=== PATIENT | female | born 1940 | race Caucasian/White ===

== ENCOUNTER 2018-10-26 16:38 | Emergency (ER) | payer MEDICARE, OTHER ==
[~2018-10-26] VITALS: Ht 160 cm; Wt 78.0 kg
--- NOTE | 2018-10-26 16:50 | NUR ---
PT AMBULATORY TO ER BED 13 C/ EPIGASTRIC PAIN W/ NAUSEA X 3 DAYS NOW. PT DENIES DIARRHEA, GOWNED AND PLACED ON MONITOR. VSS. AWAITING MD HUANG.
--- NOTE | 2018-10-26 17:13 | NUR ---
DR MANN AT BEDSIDE FOR EVAL.
[2018-10-26] MEDS ORDERED: ONDANSETRON HCL/PF 4 MG/2 ML VIAL ONE (17:16)
--- NOTE | 2018-10-26 17:23 | NUR ---
IV LINE STARTED BLOOD DRAW AND SENT TO LAB.
[2018-10-26 17:27] LABS: BASOPHILS % (AUTO) 0.3 % (0.0-2.0); EOSINOPHILS % (AUTO) 0.3 % (0.0-6.0); HEMATOCRIT 39 % (33-45); HEMOGLOBIN 13.5 g/dL (11.5-14.8); LYMPHOCYTES # (AUTO) 1.5 /CMM (0.8-4.8); LYMPHOCYTES % (AUTO) 18.5 % (20.0-44.0); MEAN CORPUSCULAR HGB CONC 35 g/dl (31.0-36.0); MEAN CORPUSCULAR VOLUME 87 fL (82-100); MONOCYTES # (AUTO) 0.7 /CMM (0.1-1.30); MONOCYTES % (AUTO) 9.3 % (2.0-12.0); NEUTROPHILS # (AUTO) 5.6 /CMM (1.8-8.9); NEUTROPHILS % (AUTO) 71.6 % (43.0-81.0); PLATELET COUNT (AUTO) 249 /CMM (150-450); RED BLOOD CELL COUNT(AUTO) 4.46 MIL/uL (4.0-5.2); WHITE BLOOD COUNT (AUTO) 7.9 K/uL (4.3-11.0)
[2018-10-26] MEDS ORDERED: ONDANSETRON HCL/PF 4 MG/2 ML VIAL IVP ONE (17:30)
[2018-10-26] MEDS ORDERED: IV NS 0.9% 1,000 ML BAG IV ONE (17:30)
[2018-10-26 17:35] LABS: CALCIUM, SERUM 8.7 mg/dL (8.5-10.1); CARBON DIOXIDE 28 mmol/L (21-32); CHLORIDE 89 mmol/L (98-107); CREATININE 0.7 mg/dL (0.6-1.3); GLUCOSE 100 mg/dL (74-106); POTASSIUM 3.4 mmol/L (3.5-5.1); SODIUM SERUM 125 mmol/L (136-145); UREA NITROGEN, BLOOD 15 mg/dL (7-18)
[2018-10-26 17:41] LABS: ALANINE AMINOTRANSFERASE 27 U/L (12-78); ALBUMIN 3.6 g/dL (3.4-5.0); ALKALINE PHOSPHATASE 65 U/L (46-116); ASPARTATE AMINOTRANSFERASE 25 U/L (15-37); BILIRUBIN,DIRECT 0.1 mg/dL (0.0-0.2); BILIRUBIN,TOTAL 0.5 mg/dL (0.2-1.0); LIPASE 65 U/L (73-393); TOTAL PROTEIN, SERUM 6.7 g/dL (6.4-8.2)
[2018-10-26 19:05] LABS: APPEARANCE,URINE Clear (CLEAR); BILIRUBIN,URINE Negative (NEGATIVE); BLOOD, URINE Negative Ery/uL (NEGATIVE); COLOR,URINE Yellow (YELLOW); KETONES,URINE Negative (NEGATIVE); LEUKOCYTE ESTERASE ,URINE Negative (NEGATIVE); NITRITE, URINE Negative (NEGATIVE); PROTEIN,URINE Negative (NEGATIVE); UGLUCOSE Negative (NEGATIVE); UROBILINOGEN,URINE 0.2 EU/dL (0.2)
--- NOTE | 2018-10-26 19:13 | NUR ---
REPORT GIVEN TO ANNIE GATES FOR SALENA.
--- NOTE | 2018-10-26 19:29 | NUR ---
RECEIVED REPORT FROM NETTIE WINTER FOR Pt's SALENA. WILL CONTINUE TO MONITOR's CONDITION AND SAFETY. Pt IS CLEARED FOR DISCHARGE.
--- NOTE | 2018-10-26 19:57 | NUR ---
Patient discharged to home in stable condition. Written and verbal after care instructions given. Patient verbalizes understanding of instruction. Patient left facility on foot with steady gait. No s/s of acute distress or sob noted. vs stable.
[2018-10-26 19:58] VITALS: BP 125/87
== END 2018-10-26 20:02 | disposition home or self-care (01) ==
LOC: ER 16:50
DX: R11.0 Nausea (principal); R10.13 Epigastric pain; R53.1 Weakness; I10 Essential (primary) hypertension; I25.2 Old myocardial infarction; J45.909 Unspecified asthma, uncomplicated; Z90.89 Acquired absence of other organs; Z87.19 Personal history of other diseases of the digestive system
CPT/HCPCS: 36415; 71045-TC; 80048-TC; 80076-TC; 81000-TC; 83690-TC; 85025-TC; A4606; J2405; J7030; Z7610

== ENCOUNTER 2018-12-03 19:55 | Emergency (ER) | payer MEDICARE, OTHER ==
[~2018-12-03] VITALS: Ht 162.6 cm; Wt 77.1 kg
[2018-12-03 20:55] VITALS: BP 121/78
--- NOTE | 2018-12-03 21:07 | NUR ---
PT AAOX4. NO S/S OF ACUTE DISTRESS NOTED. RR EVEN AND UNLABORED. PT SITTING ON SIDE OF BED AND WALKING AROUND IN ER BED 4.
--- NOTE | 2018-12-03 21:10 | NUR ---
BEDSIDE SPEAKING TO PT.
[2018-12-03] MEDS ORDERED: predniSONE 20 MG TABLET ONE (21:26)
[2018-12-03] MEDS ORDERED: predniSONE 20 MG TABLET PO ONE (21:30)
[2018-12-03] MEDS ORDERED: ALBUTEROL FS 2.5 MG/3 ML VIAL.NEB NEB ONE (21:30)
--- NOTE | 2018-12-03 21:40 | NUR ---
RT CALLED FOR BREATHING TREATMENT
[2018-12-03] MEDS ORDERED: ALBUTEROL FS 2.5 MG/3 ML VIAL.NEB ONE (21:49)
--- NOTE | 2018-12-03 21:58 | NUR ---
RT BEDSIDE FOR BREATHING TREATMENT
--- NOTE | 2018-12-03 23:22 | NUR ---
Patient discharged to home in stable condition. Written and verbal after care instructions given. Patient verbalizes understanding of instruction.
== END 2018-12-03 23:24 | disposition home or self-care (01) ==
LOC: ER 19:57
DX: J42 Unspecified chronic bronchitis (principal); J43.9 Emphysema, unspecified; I10 Essential (primary) hypertension; I25.2 Old myocardial infarction; J45.909 Unspecified asthma, uncomplicated; M54.9 Dorsalgia, unspecified; Z90.89 Acquired absence of other organs; Z95.5 Presence of coronary angioplasty implant and graft
CPT/HCPCS: 71045-TC

== ENCOUNTER 2024-06-11 02:11 | Inpatient (IN) | payer MEDICARE, OTHER ==
[2024-06-11] VITALS (22 sets, daily range): BP systolic 127–166; BP diastolic 66–116; TEMP 98–98.8; O2SAT 92–100
[~2024-06-11] VITALS: Ht 162.6 cm; Wt 76.2 kg
[2024-06-11] MEDS ORDERED: methylPREDNISolone SOD SUCC 125 MG/2ML VIAL ONE (02:19)
[2024-06-11] MEDS ORDERED: Magnesium 1GM/D5W 100ML PREMIX 100 ML IV ONE ×2 (02:19→02:23)
[2024-06-11] MEDS: methylPREDNISolone SOD SUCC 125 MG/2ML VIAL IV ONE (02:24)
[2024-06-11] MEDS: ALBUTEROL FS 2.5 MG/3 ML VIAL.NEB CONTNEB ONE (02:26)
[2024-06-11] MEDS: IPRATROPIUM NEB FS 0.5 MG/2.5 ML AMPUL.NEB NEB ONE (02:26)
[2024-06-11] MEDS ORDERED: IPRATROPIUM NEB FS 0.5 MG/2.5 ML AMPUL.NEB ONE (02:27)
[2024-06-11] MEDS ORDERED: ALBUTEROL FS 2.5 MG/3 ML VIAL.NEB ONE (02:27)
[2024-06-11 02:35] LABS: BASOPHILS % (AUTO) 0.3 % (0.0-2.0); EOSINOPHILS # (AUTO) 0.3 K/uL (0.0-0.7); EOSINOPHILS % (AUTO) 2.8 % (0.0-6.0); HEMATOCRIT 43 % (33-45); HEMOGLOBIN 13.6 g/dL (11.5-14.8); LYMPHOCYTES # (AUTO) 5.5 K/uL (0.8-4.8); LYMPHOCYTES % (AUTO) 44.2 % (20.0-44.0); MEAN CORPUSCULAR HEMOGLOBIN 28 PG (26.0-33.0); MEAN CORPUSCULAR HGB CONC 32 g/dl (31.0-36.0); MEAN CORPUSCULAR VOLUME 88 fL (82-100); MONOCYTES % (AUTO) 7.9 % (2.0-12.0); NEUTROPHILS # (AUTO) 5.6 K/uL (1.8-8.9); NEUTROPHILS % (AUTO) 44.8 % (43.0-81.0); PLATELET COUNT (AUTO) 270 K/uL (150-450); RED BLOOD CELL COUNT(AUTO) 4.85 MIL/uL (4.0-5.2); RED CELL DISTRIBUTION WIDTH 14.6 % (11.5-15.0); WHITE BLOOD COUNT (AUTO) 12.5 K/uL (4.3-11.0)
[2024-06-11] MEDS: Magnesium 1GM/D5W 100ML PREMIX 200 ML IV ONE (02:37)
[2024-06-11 02:46] LABS: CALCIUM, SERUM 8.8 mg/dL (8.5-10.1); CARBON DIOXIDE 26 mmol/L (21-32); CHLORIDE 108 mmol/L (98-107); CREATININE 0.8 mg/dL (0.6-1.3); GLUCOSE 175 mg/dL (74-106); POTASSIUM 4.6 mmol/L (3.5-5.1); SODIUM SERUM 144 mmol/L (136-145); UREA NITROGEN, BLOOD 26 mg/dL (7-18)
[2024-06-11 03:02] LABS: ALANINE AMINOTRANSFERASE 41 U/L (12-78); ALBUMIN 3.5 g/dL (3.4-5.0); ALKALINE PHOSPHATASE 89 U/L (46-116); ASPARTATE AMINOTRANSFERASE 47 U/L (15-37); BILIRUBIN,DIRECT 0.1 mg/dL (0.0-0.2); BILIRUBIN,TOTAL 0.3 mg/dL (0.2-1.0); NT-PRO BNP 2232 pg/mL (0-125); TOTAL PROTEIN, SERUM 7.1 g/dL (6.4-8.2)
[2024-06-11] MEDS ORDERED: LORAZEPAM INJ 2 MG/ML VIAL ONE (03:03)
[2024-06-11] MEDS: LORAZEPAM INJ 2 MG/ML VIAL IV ONE (03:15)
[2024-06-11] MEDS ORDERED: ALBUTEROL FS 2.5 MG/0.5 ML VIAL.NEB NEB PRN (04:30)
[2024-06-11] MEDS ORDERED: MORPHINE SULFATE INJ 2 MG/ML DISP.SYRIN IV PRN (04:30)
[2024-06-11] MEDS ORDERED: ONDANSETRON HCL/PF 4 MG/2 ML VIAL IVP PRN (04:30)
[2024-06-11 04:53] LABS: ABG BASE EXCESS -3.6 mmol/L (-2.0-2.0); ABG PCO2 46.6 mmHg (35.0-45.0); ABG PH 7.309 (7.350-7.450); ABG PO2 126.9 mmHg (75.0-100.0); ABG TOTAL HEMOGLOBIN 12.4 G/dL (12.0-16.0); COHb 1.2 % (0.5-1.5); O2Hb 96.8 % (94.0-97.0); SITE, ABG Left Radial; VENT MODE, BG ST 12/5 RR16 30%
[2024-06-11] MEDS ORDERED: IPRATROPIUM/ALBUTEROL INHALER IH SCH (06:00)
[2024-06-11] MEDS: ALBUTEROL FS 2.5 MG/0.5 ML VIAL.NEB NEB SCH (08:45)
[2024-06-11] MEDS: IPRATROPIUM NEB FS 0.5 MG/2.5 ML AMPUL.NEB IH SCH (08:45)
[2024-06-11] MEDS: HEPARIN SODIUM, PORCINE 5000 UNITS/1 ML VIAL SQ SCH (10:26)
[2024-06-11] MEDS ORDERED: FURO40TA5 PO (11:30)
[2024-06-11] MEDS ORDERED: ISOS60TA72 PO (11:30)
[2024-06-11] MEDS ORDERED: CLON0.1T PO (11:30)
[2024-06-11] MEDS ORDERED: METO25TA4 PO (11:30)
[2024-06-11] MEDS ORDERED: ALBU90AE IH (11:30)
[2024-06-11] MEDS ORDERED: LOSA1TAB36 PO (11:30)
[2024-06-11] MEDS ORDERED: ASPI-1420 PO (11:30)
[2024-06-11] MEDS ORDERED: ROSU20TA32 PO (11:30)
[2024-06-11] MEDS ORDERED: CLOP75TA15 PO (11:30)
[2024-06-11] MEDS: LEVOFLOXACIN (250MG) 250 MG TABLET PO SCH (11:49)
[2024-06-11] MEDS ORDERED: IOHEXOL-350 100 ML VIAL IV ONE (13:02)
[2024-06-11] MEDS ORDERED: IV NS 0.9% 250 ML IV ONE (13:03)
[2024-06-11] MEDS: methylPREDNISolone SOD SUCC 40 MG/ML VIAL IV SCH (13:53)
[2024-06-11] MEDS: MENTHOL/CETYLPYRD (CEPACOL) 1 LOZ LOZENGE PO PRN (16:29)
[2024-06-11] MEDS: ENOXAPARIN SODIUM 80 MG/0.8 ML DISP.SYRIN SQ SCH (20:45)
[2024-06-12] VITALS (21 sets, daily range): BP systolic 54–159; BP diastolic 12–104; TEMP 98–98.6; O2SAT 89–99
[2024-06-12 04:03] LABS: HEMATOCRIT 36 % (33-45); HEMOGLOBIN 11.9 g/dL (11.5-14.8); LYMPHOCYTES # (AUTO) 0.5 K/uL (0.8-4.8); LYMPHOCYTES % (AUTO) 4.4 % (20.0-44.0); MEAN CORPUSCULAR HEMOGLOBIN 29 PG (26.0-33.0); MEAN CORPUSCULAR HGB CONC 33 g/dl (31.0-36.0); MEAN CORPUSCULAR VOLUME 87 fL (82-100); MONOCYTES # (AUTO) 0.3 K/uL (0.1-1.30); MONOCYTES % (AUTO) 2.3 % (2.0-12.0); NEUTROPHILS # (AUTO) 10.4 K/uL (1.8-8.9); NEUTROPHILS % (AUTO) 93.3 % (43.0-81.0); PLATELET COUNT (AUTO) 207 K/uL (150-450); RED BLOOD CELL COUNT(AUTO) 4.15 MIL/uL (4.0-5.2); RED CELL DISTRIBUTION WIDTH 14.1 % (11.5-15.0); WHITE BLOOD COUNT (AUTO) 11.1 K/uL (4.3-11.0)
[2024-06-12 04:45] LABS: ALANINE AMINOTRANSFERASE 43 U/L (12-78); ALBUMIN 3.1 g/dL (3.4-5.0); ALKALINE PHOSPHATASE 77 U/L (46-116); ASPARTATE AMINOTRANSFERASE 21 U/L (15-37); BILIRUBIN,TOTAL 0.2 mg/dL (0.2-1.0); CALCIUM, SERUM 8.5 mg/dL (8.5-10.1); CARBON DIOXIDE 28 mmol/L (21-32); CHLORIDE 104 mmol/L (98-107); CREATININE 1.1 mg/dL (0.6-1.3); GLUCOSE 183 mg/dL (74-106); MAGNESIUM 2.4 mg/dL (1.8-2.4); PHOSPHORUS 2.9 mg/dL (2.5-4.9); POTASSIUM 3.9 mmol/L (3.5-5.1); SODIUM SERUM 141 mmol/L (136-145); TOTAL PROTEIN, SERUM 6.5 g/dL (6.4-8.2); UREA NITROGEN, BLOOD 31 mg/dL (7-18)
[2024-06-12] MEDS: APIXABAN 5 MG TABLET PO SCH (16:58)
[2024-06-12] MEDS: LORAZEPAM 0.5 MG TABLET PO PRN (19:40)
[2024-06-12] MEDS: ACETAMINOPHEN 325 MG TABLET PO PRN (20:10)
[2024-06-12] MEDS: ZOLPIDEM TARTRATE 5 MG TABLET PO PRN (21:47)
[2024-06-13] VITALS (13 sets, daily range): BP systolic 110–174; BP diastolic 88–144; TEMP 97.3–98; O2SAT 90–98
[2024-06-13] MEDS: OLANZAPINE 10 MG VIAL IM PRN (01:29)
[2024-06-13 06:49] LABS: BASOPHILS % (AUTO) 0.1 % (0.0-2.0); HEMATOCRIT 37 % (33-45); HEMOGLOBIN 12.5 g/dL (11.5-14.8); LYMPHOCYTES # (AUTO) 0.6 K/uL (0.8-4.8); LYMPHOCYTES % (AUTO) 5.6 % (20.0-44.0); MEAN CORPUSCULAR HEMOGLOBIN 29 PG (26.0-33.0); MEAN CORPUSCULAR HGB CONC 33 g/dl (31.0-36.0); MEAN CORPUSCULAR VOLUME 87 fL (82-100); MONOCYTES # (AUTO) 0.2 K/uL (0.1-1.30); MONOCYTES % (AUTO) 1.7 % (2.0-12.0); NEUTROPHILS # (AUTO) 9.8 K/uL (1.8-8.9); NEUTROPHILS % (AUTO) 92.6 % (43.0-81.0); PLATELET COUNT (AUTO) 209 K/uL (150-450); RED BLOOD CELL COUNT(AUTO) 4.29 MIL/uL (4.0-5.2); RED CELL DISTRIBUTION WIDTH 14.4 % (11.5-15.0); WHITE BLOOD COUNT (AUTO) 10.5 K/uL (4.3-11.0)
[2024-06-13 06:55] LABS: CALCIUM, SERUM 8.8 mg/dL (8.5-10.1); CARBON DIOXIDE 32 mmol/L (21-32); CHLORIDE 110 mmol/L (98-107); GLUCOSE 147 mg/dL (74-106); MAGNESIUM 2.1 mg/dL (1.8-2.4); PHOSPHORUS 3.7 mg/dL (2.5-4.9); POTASSIUM 4.6 mmol/L (3.5-5.1); SODIUM SERUM 147 mmol/L (136-145); UREA NITROGEN, BLOOD 35 mg/dL (7-18)
[2024-06-13] MEDS: ATORVASTATIN 40 MG TABLET PO SCH (08:52)
[2024-06-13] MEDS: CLOPIDOGREL BISULFATE 75 MG TABLET PO SCH (08:52)
[2024-06-13] MEDS: ASPIRIN EC 81 MG TABLET.DR PO SCH (08:59)
[2024-06-13] MEDS: NA PHOS,M-B/NA PHOS,DI-BA 1 EA ENEMA RC ONE (16:29)
[2024-06-13] MEDS: hydrALAZINE HCL IV 20 MG VIAL IV PRN (20:29)
[2024-06-14 06:38] VITALS: O2SAT 97
[2024-06-14 06:48] VITALS: O2SAT 98
[2024-06-14 08:00] VITALS: BP 150/111; TEMP 97.5; O2SAT 94
== END 2024-06-14 10:30 | disposition home or self-care (01) | DRG 190 ==
LOC: ER 02:13 → ICU 04:11 → TELE 06-12 11:42 → MED 06-13 10:12
PROVIDERS: ADMIT Nurse Practitioner Acute Care; ATTEND Nurse Practitioner Family
PROC: 5A09357 Assistance with Respiratory Ventilation, Less than 24 Consecutive Hours, Continuous Positive Airway Pressure (ICD-10-PCS; principal; 2024-06-11)
DX: J44.1 Chronic obstructive pulmonary disease with (acute) exacerbation (principal); J96.01 Acute respiratory failure with hypoxia; J96.02 Acute respiratory failure with hypercapnia; J45.901 Unspecified asthma with (acute) exacerbation; I82.401 Acute embolism and thrombosis of unspecified deep veins of right lower extremity; N17.9 Acute kidney failure, unspecified; I82.412 Acute embolism and thrombosis of left femoral vein; I25.10 Atherosclerotic heart disease of native coronary artery without angina pectoris; I10 Essential (primary) hypertension; Z20.822 Contact with and (suspected) exposure to COVID-19; I25.2 Old myocardial infarction; Z87.19 Personal history of other diseases of the digestive system; G89.29 Other chronic pain; Z95.5 Presence of coronary angioplasty implant and graft; Z90.49 Acquired absence of other specified parts of digestive tract; Z79.899 Other long term (current) drug therapy; Z79.82 Long term (current) use of aspirin; Z79.51 Long term (current) use of inhaled steroids; Z79.01 Long term (current) use of anticoagulants; T50.8X5A Adverse effect of diagnostic agents, initial encounter; Y92.9 Unspecified place or not applicable
CPT/HCPCS: 36415; 36600; 71045-TC; 80048-TC; 80053-TC; 80076-TC; 82803-TC; 83735-TC; 83880; 84100-TC; 84484-TC; 85025-TC; 87081-TC; 93970-TC; 94760-TC; 94762-TC; 94799-TC; G0378; J0360; J1644; J1650; J2060; J2919; J3475; J3490; J7050; Q9967

== ENCOUNTER 2024-07-01 17:13 | Emergency (ER) | payer MEDICARE ==
[~2024-07-01] VITALS: Ht 165.1 cm; Wt 74.8 kg
[~2024-07-01 17:13] MED LIST: ALBU90AE IH; ASPI-1420 PO; CLON0.1T PO; FURO40TA5 PO; ISOS60TA72 PO; METO25TA4 PO; ROSU20TA32 PO
[2024-07-01 19:06] LABS: BASOPHILS # (AUTO) 0.1 K/uL (0.0-0.2); BASOPHILS % (AUTO) 0.7 % (0.0-2.0); EOSINOPHILS # (AUTO) 0.1 K/uL (0.0-0.7); EOSINOPHILS % (AUTO) 1.3 % (0.0-6.0); HEMATOCRIT 39 % (33-45); HEMOGLOBIN 12.8 g/dL (11.5-14.8); LYMPHOCYTES # (AUTO) 1.2 K/uL (0.8-4.8); LYMPHOCYTES % (AUTO) 15.9 % (20.0-44.0); MEAN CORPUSCULAR HEMOGLOBIN 28 PG (26.0-33.0); MEAN CORPUSCULAR HGB CONC 33 g/dl (31.0-36.0); MEAN CORPUSCULAR VOLUME 87 fL (82-100); MONOCYTES # (AUTO) 0.5 K/uL (0.1-1.30); MONOCYTES % (AUTO) 7.1 % (2.0-12.0); NEUTROPHILS # (AUTO) 5.4 K/uL (1.8-8.9); PLATELET COUNT (AUTO) 213 K/uL (150-450); RED BLOOD CELL COUNT(AUTO) 4.49 MIL/uL (4.0-5.2); RED CELL DISTRIBUTION WIDTH 14.7 % (11.5-15.0); WHITE BLOOD COUNT (AUTO) 7.3 K/uL (4.3-11.0)
[2024-07-01 19:21] LABS: CALCIUM, SERUM 8.8 mg/dL (8.5-10.1); CARBON DIOXIDE 31 mmol/L (21-32); CHLORIDE 106 mmol/L (98-107); CREATININE 0.6 mg/dL (0.6-1.3); GLUCOSE 89 mg/dL (74-106); POTASSIUM 4.6 mmol/L (3.5-5.1); SODIUM SERUM 142 mmol/L (136-145); UREA NITROGEN, BLOOD 21 mg/dL (7-18)
[2024-07-01] MEDS: CLONIDINE HCL 0.1 MG TABLET PO ONE (19:42)
[2024-07-01] MEDS: ISOSORBIDE MONONITRATE 20 MG TABLET PO SCH (20:28)
[2024-07-02] MEDS: ALBUTEROL FS 2.5 MG/3 ML VIAL.NEB NEB ONE ×2 (01:00→06:09)
[2024-07-02 01:02] VITALS: O2SAT 94
[2024-07-02] MEDS ORDERED: ALBUTEROL FS 2.5 MG/3 ML VIAL.NEB ONE ×2 (01:03→06:13)
[2024-07-02 01:17] VITALS: O2SAT 99
[2024-07-02 06:16] VITALS: O2SAT 97
[2024-07-02 06:32] VITALS: O2SAT 99
[2024-07-02 10:41] VITALS: BP 116/63; TEMP 98.1; O2SAT 95
[2024-09-08] MEDS ORDERED: ATOR40TA PO (09:05)
[2024-09-08] MEDS ORDERED: ALBU18HF2 INH (09:05)
[2024-09-08] MEDS ORDERED: CLIN300C12 PO (09:05)
[2024-09-08] MEDS ORDERED: FURO-144 PO (09:05)
[2024-09-08] MEDS ORDERED: ISOS30TA86 PO (09:05)
== END 2024-07-02 10:42 | disposition home or self-care (01) ==
LOC: ER 17:17 → MEDSG1 07-02 09:42 → UNDOADMIN 07-02 09:42 → UNDODISIN 07-02 10:25 → ER 07-02 10:42
DX: J44.1 Chronic obstructive pulmonary disease with (acute) exacerbation (principal); I10 Essential (primary) hypertension; R22.41 Localized swelling, mass and lump, right lower limb; I25.10 Atherosclerotic heart disease of native coronary artery without angina pectoris; I25.2 Old myocardial infarction; K21.9 Gastro-esophageal reflux disease without esophagitis; M79.89 Other specified soft tissue disorders; Z79.899 Other long term (current) drug therapy; Z90.49 Acquired absence of other specified parts of digestive tract; Z79.82 Long term (current) use of aspirin; Z79.51 Long term (current) use of inhaled steroids; Z20.822 Contact with and (suspected) exposure to COVID-19; Z95.5 Presence of coronary angioplasty implant and graft; Z87.39 Personal history of other diseases of the musculoskeletal system and connective tissue; Z87.19 Personal history of other diseases of the digestive system
CPT/HCPCS: 36415; 71045-TC; 80048-TC; 83880; 84484-TC; 85025-TC; 85378-TC; 93971-TC; G0378

== ENCOUNTER 2024-07-09 18:20 | Emergency (ER) | payer MEDICARE ==
[~2024-07-09] VITALS: Ht 165.1 cm; Wt 70.3 kg
[2024-07-09 18:33] VITALS: TEMP 98.6
[2024-07-09] MEDS ORDERED: ONDANSETRON HCL/PF 4 MG/2 ML VIAL ONE (19:57)
[2024-07-09] MEDS: IV NS 0.9% 1,000 ML BAG IV ONE (19:58)
[2024-07-09] MEDS: ONDANSETRON HCL/PF 4 MG/2 ML VIAL IVP ONE (19:58)
[2024-07-09 20:03] LABS: BASOPHILS # (AUTO) 0.1 K/uL (0.0-0.2); BASOPHILS % (AUTO) 0.7 % (0.0-2.0); EOSINOPHILS # (AUTO) 0.2 K/uL (0.0-0.7); HEMATOCRIT 43 % (33-45); HEMOGLOBIN 13.9 g/dL (11.5-14.8); LYMPHOCYTES % (AUTO) 24.1 % (20.0-44.0); MEAN CORPUSCULAR HEMOGLOBIN 28 PG (26.0-33.0); MEAN CORPUSCULAR HGB CONC 32 g/dl (31.0-36.0); MEAN CORPUSCULAR VOLUME 87 fL (82-100); MONOCYTES # (AUTO) 0.8 K/uL (0.1-1.30); NEUTROPHILS # (AUTO) 5.2 K/uL (1.8-8.9); NEUTROPHILS % (AUTO) 63.2 % (43.0-81.0); PLATELET COUNT (AUTO) 283 K/uL (150-450); RED BLOOD CELL COUNT(AUTO) 4.94 MIL/uL (4.0-5.2); RED CELL DISTRIBUTION WIDTH 14.6 % (11.5-15.0); WHITE BLOOD COUNT (AUTO) 8.3 K/uL (4.3-11.0)
[2024-07-09 20:08] VITALS: BP 164/82; O2SAT 96
[2024-07-09 20:17] LABS: CALCIUM, SERUM 9.1 mg/dL (8.5-10.1); CARBON DIOXIDE 35 mmol/L (21-32); CHLORIDE 102 mmol/L (98-107); CREATININE 0.8 mg/dL (0.6-1.3); GLUCOSE 97 mg/dL (74-106); POTASSIUM 4.1 mmol/L (3.5-5.1); SODIUM SERUM 141 mmol/L (136-145); UREA NITROGEN, BLOOD 23 mg/dL (7-18)
[2024-07-09 20:21] LABS: INR 0.99 (0.91-1.10); PARTIAL THROMBOPLASTIN TIME 26.5 SEC (24.3-34.3); PROTHROMBIN TIME 10.5 SECS (9.2-11.1)
[2024-07-09 20:23] LABS: ALANINE AMINOTRANSFERASE 21 U/L (12-78); ALBUMIN 3.7 g/dL (3.4-5.0); ALKALINE PHOSPHATASE 88 U/L (46-116); ASPARTATE AMINOTRANSFERASE 8 U/L (15-37); BILIRUBIN,DIRECT 0.1 mg/dL (0.0-0.2); BILIRUBIN,TOTAL 0.4 mg/dL (0.2-1.0); LIPASE 26 U/L (16-77); TOTAL PROTEIN, SERUM 6.8 g/dL (6.4-8.2)
== END 2024-07-09 20:40 | disposition left against medical advice (07) ==
LOC: ER 18:25
DX: R11.2 Nausea with vomiting, unspecified (principal); I10 Essential (primary) hypertension; Z98.890 Other specified postprocedural states; J45.909 Unspecified asthma, uncomplicated; Z79.82 Long term (current) use of aspirin; Z79.52 Long term (current) use of systemic steroids; Z79.899 Other long term (current) drug therapy; Z60.2 Problems related to living alone
CPT/HCPCS: 99283; 96374; 96361; 85025; 80048; 83690; 80076; 36415; 85730; J2405; J7030

== ENCOUNTER 2024-08-21 14:32 | Emergency (ER) | payer MEDICARE ==
[~2024-08-21] VITALS: Ht 162.6 cm; Wt 72.6 kg
[2024-08-21 15:23] VITALS: TEMP 98.3
[2024-08-21] MEDS: CEPHALEXIN MONOHYDRATE 500 MG CAPSULE PO ONE (16:06)
[2024-08-21] MEDS: SULFAMETH/TRIMETH 800/160 MG 1 UDTAB TABLET PO ONE (16:06)
[2024-08-21] MEDS ORDERED: CEPHALEXIN MONOHYDRATE 500 MG CAPSULE PO ONE (16:09)
[2024-08-21] MEDS ORDERED: SULFAMETH/TRIMETH 800/160 MG 1 UDTAB TABLET ONE (16:10)
[2024-08-21] MEDS ORDERED: CEPH500T PO (16:57)
[2024-08-21] MEDS ORDERED: SULF1TAB48 PO (16:57)
[2024-08-21 17:18] VITALS: BP 154/84; O2SAT 96
== END 2024-08-21 17:19 | disposition home or self-care (01) ==
LOC: ER 14:40
DX: L03.115 Cellulitis of right lower limb (principal); J45.909 Unspecified asthma, uncomplicated; I25.2 Old myocardial infarction; R60.0 Localized edema; Z79.899 Other long term (current) drug therapy; Z79.82 Long term (current) use of aspirin; Z60.2 Problems related to living alone
CPT/HCPCS: 93971-TC

== ENCOUNTER 2024-09-06 18:18 | Inpatient (IN) | payer MEDICARE ==
[~2024-09-06] VITALS: Ht 162.6 cm; Wt 78.6 kg
[~2024-09-06 18:18] MED LIST changes: +CEPH500T PO; +SULF1TAB48 PO
[2024-09-06 19:40] LABS: BASOPHILS % (AUTO) 0.3 % (0.0-2.0); EOSINOPHILS # (AUTO) 0.2 K/uL (0.0-0.7); HEMATOCRIT 42 % (33-45); HEMOGLOBIN 13.5 g/dL (11.5-14.8); LYMPHOCYTES # (AUTO) 1.6 K/uL (0.8-4.8); LYMPHOCYTES % (AUTO) 17.4 % (20.0-44.0); MEAN CORPUSCULAR HEMOGLOBIN 28 PG (26.0-33.0); MEAN CORPUSCULAR HGB CONC 33 g/dl (31.0-36.0); MEAN CORPUSCULAR VOLUME 86 fL (82-100); MONOCYTES # (AUTO) 0.7 K/uL (0.1-1.30); MONOCYTES % (AUTO) 7.6 % (2.0-12.0); NEUTROPHILS # (AUTO) 6.8 K/uL (1.8-8.9); NEUTROPHILS % (AUTO) 72.7 % (43.0-81.0); PLATELET COUNT (AUTO) 231 K/uL (150-450); RED BLOOD CELL COUNT(AUTO) 4.82 MIL/uL (4.0-5.2); RED CELL DISTRIBUTION WIDTH 14.8 % (11.5-15.0); WHITE BLOOD COUNT (AUTO) 9.3 K/uL (4.3-11.0)
[2024-09-06 19:50] LABS: CALCIUM, SERUM 9.4 mg/dL (8.5-10.1); CARBON DIOXIDE 27 mmol/L (21-32); CHLORIDE 106 mmol/L (98-107); GLUCOSE 118 mg/dL (74-106); POTASSIUM 4.4 mmol/L (3.5-5.1); SODIUM SERUM 141 mmol/L (136-145); UREA NITROGEN, BLOOD 32 mg/dL (7-18)
[2024-09-06 20:04] LABS: ALANINE AMINOTRANSFERASE 36 U/L (12-78); ALBUMIN 3.7 g/dL (3.4-5.0); ALKALINE PHOSPHATASE 94 U/L (46-116); ASPARTATE AMINOTRANSFERASE 35 U/L (15-37); BILIRUBIN,TOTAL 0.4 mg/dL (0.2-1.0); NT-PRO BNP 2377 pg/mL (0-125); TOTAL PROTEIN, SERUM 6.9 g/dL (6.4-8.2)
[2024-09-06] MEDS ORDERED: methylPREDNISolone SOD SUCC 125 MG/2ML VIAL ONE (20:56)
[2024-09-06] MEDS: methylPREDNISolone SOD SUCC 125 MG/2ML VIAL IV ONE (21:04)
[2024-09-06 21:05] LABS: ABG BASE EXCESS 0.4 mmol/L (-2.0-3.0); ABG OXYGEN SATURATION 92.7 % (94.0-98.0); ABG PCO2 40.6 mmHg (32.0-45.0); ABG PH 7.408 (7.350-7.450); ABG PO2 65.9 mmHg (83.0-108.0); ABG TOTAL HEMOGLOBIN 13.8 G/dL (12.0-16.0); MetHb 0.1 % (0.0-1.5); O2Hb 92.6 % (94.0-97.0); SITE, ABG LEFT FEMORAL
[2024-09-06 21:13] VITALS: O2SAT 99
[2024-09-06] MEDS: ALBUTEROL FS 2.5 MG/3 ML VIAL.NEB NEB ONE (21:13)
[2024-09-06] MEDS ORDERED: ALBUTEROL FS 2.5 MG/3 ML VIAL.NEB ONE (21:14)
[2024-09-06 21:23] VITALS: O2SAT 99
[2024-09-06] MEDS ORDERED: Z GUARD REMEDY 4 OZ OINT TP PRN (22:00)
[2024-09-06] MEDS ORDERED: MAG HYDROX/AL HYDROX/SIMETH 30 ML UDC PO PRN (22:00)
[2024-09-06] MEDS ORDERED: MAGNESIUM HYDROXIDE 30 ML UDC PO PRN (22:00)
[2024-09-06] MEDS ORDERED: ONDANSETRON HCL/PF 4 MG/2 ML VIAL IVP PRN (22:00)
[2024-09-06] MEDS ORDERED: ALBUTEROL FS 2.5 MG/0.5 ML VIAL.NEB NEB PRN (22:00)
[2024-09-07] VITALS (14 sets, daily range): BP systolic 124–151; BP diastolic 60–88; TEMP 97.7–98.3; O2SAT 94–99
[2024-09-07] MEDS: IPRATROPIUM NEB FS 0.5 MG/2.5 ML AMPUL.NEB NEB SCH (01:39)
[2024-09-07] MEDS: ALBUTEROL FS 2.5 MG/0.5 ML VIAL.NEB NEB SCH (01:39)
[2024-09-07] MEDS: ENOXAPARIN SODIUM 40 MG/0.4 ML DISP.SYRIN SQ SCH (02:24)
[2024-09-07] MEDS: methylPREDNISolone SOD SUCC 125 MG/2ML VIAL IV SCH (04:59)
[2024-09-07 06:32] LABS: BASOPHILS % (AUTO) 0.1 % (0.0-2.0); HEMATOCRIT 42 % (33-45); HEMOGLOBIN 13.7 g/dL (11.5-14.8); LYMPHOCYTES # (AUTO) 0.6 K/uL (0.8-4.8); LYMPHOCYTES % (AUTO) 11.9 % (20.0-44.0); MEAN CORPUSCULAR HEMOGLOBIN 28 PG (26.0-33.0); MEAN CORPUSCULAR HGB CONC 32 g/dl (31.0-36.0); MEAN CORPUSCULAR VOLUME 86 fL (82-100); MONOCYTES # (AUTO) 0.1 K/uL (0.1-1.30); NEUTROPHILS # (AUTO) 4.4 K/uL (1.8-8.9); PLATELET COUNT (AUTO) 219 K/uL (150-450); RED BLOOD CELL COUNT(AUTO) 4.91 MIL/uL (4.0-5.2); RED CELL DISTRIBUTION WIDTH 14.6 % (11.5-15.0); WHITE BLOOD COUNT (AUTO) 5.1 K/uL (4.3-11.0)
[2024-09-07 06:45] LABS: CALCIUM, SERUM 9.6 mg/dL (8.5-10.1); CARBON DIOXIDE 23 mmol/L (21-32); CHLORIDE 102 mmol/L (98-107); CREATININE 0.9 mg/dL (0.6-1.3); GLUCOSE 170 mg/dL (74-106); MAGNESIUM 2.3 mg/dL (1.8-2.4); PHOSPHORUS 2.9 mg/dL (2.5-4.9); POTASSIUM 4.1 mmol/L (3.5-5.1); SODIUM SERUM 139 mmol/L (136-145); UREA NITROGEN, BLOOD 25 mg/dL (7-18)
[2024-09-07] MEDS ORDERED: SPIR25TA PO (07:35)
[2024-09-07] MEDS ORDERED: ISOSORBIDE MONONITRATE 60 MG TAB.SR.24H PO SCH (09:00)
[2024-09-07] MEDS: ATORVASTATIN 40 MG TABLET PO SCH (09:58)
[2024-09-07] MEDS: CLONIDINE HCL 0.1 MG TABLET PO SCH (09:58)
[2024-09-07] MEDS: FUROSEMIDE 40 MG TABLET PO SCH (09:58)
[2024-09-07] MEDS: ISOSORBIDE MONONITRATE (30MG) 30 MG TAB.SR.24H PO SCH (10:16)
[2024-09-08] VITALS (11 sets, daily range): BP systolic 131–141; BP diastolic 67–84; TEMP 97.5–97.9; O2SAT 94–98
[2024-09-08 06:30] LABS: HEMATOCRIT 35 % (33-45); HEMOGLOBIN 11.5 g/dL (11.5-14.8); LYMPHOCYTES % (AUTO) 8.4 % (20.0-44.0); MEAN CORPUSCULAR HEMOGLOBIN 28 PG (26.0-33.0); MEAN CORPUSCULAR HGB CONC 33 g/dl (31.0-36.0); MEAN CORPUSCULAR VOLUME 85 fL (82-100); MONOCYTES # (AUTO) 0.5 K/uL (0.1-1.30); MONOCYTES % (AUTO) 4.1 % (2.0-12.0); NEUTROPHILS # (AUTO) 10.1 K/uL (1.8-8.9); NEUTROPHILS % (AUTO) 87.5 % (43.0-81.0); PLATELET COUNT (AUTO) 228 K/uL (150-450); RED BLOOD CELL COUNT(AUTO) 4.15 MIL/uL (4.0-5.2); RED CELL DISTRIBUTION WIDTH 14.6 % (11.5-15.0); WHITE BLOOD COUNT (AUTO) 11.6 K/uL (4.3-11.0)
[2024-09-08 06:49] LABS: CALCIUM, SERUM 9.3 mg/dL (8.5-10.1); CARBON DIOXIDE 23 mmol/L (21-32); CHLORIDE 101 mmol/L (98-107); CREATININE 0.9 mg/dL (0.6-1.3); GLUCOSE 178 mg/dL (74-106); POTASSIUM 3.9 mmol/L (3.5-5.1); SODIUM SERUM 138 mmol/L (136-145); UREA NITROGEN, BLOOD 39 mg/dL (7-18)
[2024-09-08] MEDS ORDERED: FURO-144 PO (09:05)
[2024-09-08] MEDS ORDERED: ALBU18HF2 INH (09:05)
[2024-09-08] MEDS ORDERED: CLIN300C12 PO (09:05)
[2024-09-08] MEDS ORDERED: ATOR40TA PO (09:05)
[2024-09-08] MEDS ORDERED: ISOS30TA86 PO (09:05)
[2024-09-08] MEDS: ACETAMINOPHEN 325 MG TABLET PO PRN (16:40)
[2024-09-08] MEDS: ZOLPIDEM TARTRATE 5 MG TABLET PO PRN (19:49)
[2024-09-08] MEDS: ALBUTEROL FS 2.5 MG/0.5 ML VIAL.NEB NEB SCH (19:56)
[2024-09-09 00:37] VITALS: O2SAT 95
[2024-09-09 00:52] VITALS: O2SAT 100
[2024-09-09 03:54] VITALS: BP 125/60; TEMP 97.6; O2SAT 100
[2024-09-09 04:52] VITALS: BP 125/60; TEMP 97.6; O2SAT 100
[2024-09-09 09:11] VITALS: BP 140/84; TEMP 97.9; O2SAT 96
== END 2024-09-09 11:03 | disposition home or self-care (01) | DRG 291 ==
LOC: ER 18:56 → TELE1 21:46 → MEDSG1 09-07 18:58
PROVIDERS: ATTEND Internal Medicine
DX: I11.0 Hypertensive heart disease with heart failure (principal); I50.43 Acute on chronic combined systolic (congestive) and diastolic (congestive) heart failure; N17.0 Acute kidney failure with tubular necrosis; J45.901 Unspecified asthma with (acute) exacerbation; J44.0 Chronic obstructive pulmonary disease with (acute) lower respiratory infection; J44.1 Chronic obstructive pulmonary disease with (acute) exacerbation; L03.115 Cellulitis of right lower limb; J20.9 Acute bronchitis, unspecified; I25.10 Atherosclerotic heart disease of native coronary artery without angina pectoris; Z95.5 Presence of coronary angioplasty implant and graft; I25.2 Old myocardial infarction; Z79.899 Other long term (current) drug therapy; Z79.51 Long term (current) use of inhaled steroids; Z79.82 Long term (current) use of aspirin; E78.5 Hyperlipidemia, unspecified
CPT/HCPCS: 36415; 36600; 71045-TC; 80048-TC; 80053-TC; 82803-TC; 83735-TC; 83880; 84100-TC; 84484-TC; 85025-TC; 85378-TC; 93307-TC; 93970-TC; 94760-TC; 94762-TC; 94799-TC; G0378; J1650; J2919

== ENCOUNTER 2024-09-22 15:16 | Emergency (ER) | payer MEDICARE ==
[~2024-09-22] VITALS: Ht 170.2 cm; Wt 77.1 kg
[~2024-09-22 15:16] MED LIST changes: +ALBU18HF2 INH; +ATOR40TA PO; -CEPH500T PO; +CLIN300C12 PO; +FURO-144 PO; -FURO40TA5 PO; +ISOS30TA86 PO; -ROSU20TA32 PO; +SPIR25TA PO; -SULF1TAB48 PO
[2024-09-22] MEDS ORDERED: ALBUTEROL FS 2.5 MG/3 ML VIAL.NEB ONE (16:04)
[2024-09-22] MEDS ORDERED: IPRATROPIUM NEB FS 0.5 MG/2.5 ML AMPUL.NEB ONE (16:04)
[2024-09-22 16:11] VITALS: O2SAT 92
[2024-09-22] MEDS: IPRATROPIUM NEB FS 0.5 MG/2.5 ML AMPUL.NEB NEB ONE (16:11)
[2024-09-22] MEDS: ALBUTEROL FS 2.5 MG/3 ML VIAL.NEB NEB ONE (16:11)
[2024-09-22 16:13] LABS: BASOPHILS % (AUTO) 0.3 % (0.0-2.0); EOSINOPHILS # (AUTO) 0.1 K/uL (0.0-0.7); EOSINOPHILS % (AUTO) 1.6 % (0.0-6.0); HEMATOCRIT 38 % (33-45); HEMOGLOBIN 12.3 g/dL (11.5-14.8); LYMPHOCYTES % (AUTO) 11.2 % (20.0-44.0); MEAN CORPUSCULAR HEMOGLOBIN 29 PG (26.0-33.0); MEAN CORPUSCULAR HGB CONC 33 g/dl (31.0-36.0); MEAN CORPUSCULAR VOLUME 87 fL (82-100); MONOCYTES # (AUTO) 0.7 K/uL (0.1-1.30); MONOCYTES % (AUTO) 7.5 % (2.0-12.0); NEUTROPHILS # (AUTO) 7.3 K/uL (1.8-8.9); NEUTROPHILS % (AUTO) 79.4 % (43.0-81.0); PLATELET COUNT (AUTO) 206 K/uL (150-450); RED BLOOD CELL COUNT(AUTO) 4.32 MIL/uL (4.0-5.2); RED CELL DISTRIBUTION WIDTH 15.7 % (11.5-15.0); WHITE BLOOD COUNT (AUTO) 9.2 K/uL (4.3-11.0)
[2024-09-22 16:28] LABS: ALANINE AMINOTRANSFERASE 46 U/L (12-78); ALBUMIN 3.4 g/dL (3.4-5.0); ALKALINE PHOSPHATASE 82 U/L (46-116); ASPARTATE AMINOTRANSFERASE 21 U/L (15-37); BILIRUBIN,DIRECT 0.1 mg/dL (0.0-0.2); BILIRUBIN,TOTAL 0.4 mg/dL (0.2-1.0); CALCIUM, SERUM 8.8 mg/dL (8.5-10.1); CARBON DIOXIDE 29 mmol/L (21-32); CHLORIDE 106 mmol/L (98-107); CREATININE 0.7 mg/dL (0.6-1.3); GLUCOSE 107 mg/dL (74-106); LIPASE 23 U/L (16-77); POTASSIUM 3.9 mmol/L (3.5-5.1); SODIUM SERUM 144 mmol/L (136-145); TOTAL PROTEIN, SERUM 6.4 g/dL (6.4-8.2); UREA NITROGEN, BLOOD 26 mg/dL (7-18)
[2024-09-22 17:05] VITALS: O2SAT 99
[2024-09-22 18:29] LABS: APPEARANCE,URINE CLEAR (CLEAR); BILIRUBIN,URINE NEGATIVE (NEGATIVE); BLOOD, URINE TRACE-INTA Ery/uL (NEGATIVE); COLOR,URINE YELLOW (YELLOW); KETONES,URINE NEGATIVE (NEGATIVE); LEUKOCYTE ESTERASE ,URINE NEGATIVE (NEGATIVE); NITRITE, URINE NEGATIVE (NEGATIVE); PROTEIN,URINE NEGATIVE (NEGATIVE); UGLUCOSE NEGATIVE (NEGATIVE); UROBILINOGEN,URINE 0.2 EU/dL (0.2)
[2024-09-22 18:31] LABS: PREGNANCY TEST URINE QUAL NEGATIVE (NEGATIVE)
[2024-09-22 18:34] LABS: ADD URINE CULTURE NO; BACTERIA,URINE Few /HPF (None Seen); RBC,URINE 0-2 /HPF (0-2)
[2024-09-22] MEDS ORDERED: ALBUTEROL FS 2.5 MG/0.5 ML VIAL.NEB ONE (20:09)
[2024-09-22] MEDS ORDERED: ONDANSETRON 4 MG TAB.RAPDIS ONE (20:10)
[2024-09-22 20:14] VITALS: O2SAT 95
[2024-09-22] MEDS: ONDANSETRON 4 MG TAB.RAPDIS PO ONE (20:19)
[2024-09-22] MEDS: ALBUTEROL FS 2.5 MG/0.5 ML VIAL.NEB NEB ONE (20:20)
[2024-09-22 20:29] VITALS: O2SAT 98; O2SAT 99
[2024-09-22] MEDS ORDERED: POLY17PO4 PO (21:24)
[2024-09-22] MEDS ORDERED: SULF1TAB48 PO (21:24)
[2024-09-22] MEDS ORDERED: CEPH500C2 PO (21:24)
[2024-09-22 21:34] VITALS: BP 139/79; TEMP 98; O2SAT 98
== END 2024-09-22 21:52 | disposition home or self-care (01) ==
LOC: ER 15:22
DX: K59.00 Constipation, unspecified (principal); M79.604 Pain in right leg; M79.89 Other specified soft tissue disorders; M79.605 Pain in left leg; R05.8 Other specified cough; I10 Essential (primary) hypertension; I25.2 Old myocardial infarction; J45.901 Unspecified asthma with (acute) exacerbation; N28.89 Other specified disorders of kidney and ureter; Z79.82 Long term (current) use of aspirin; Z79.899 Other long term (current) drug therapy; Z20.822 Contact with and (suspected) exposure to COVID-19
CPT/HCPCS: 99285; 74176; 93970; 71045; 87426; 93005; 87804 ×2; 85025; 80048; 87086; 83690; 80076; 84703; 81001; 36415; 84484 ×2; 83880; 94640; Q0162

== ENCOUNTER 2024-10-07 07:03 | Inpatient (IN) | payer MEDICARE ==
[~2024-10-07] VITALS: Ht 165.1 cm; Wt 70.3 kg
[~2024-10-07 07:03] MED LIST changes: +CEPH500C2 PO; +POLY17PO4 PO; +SULF1TAB48 PO
[2024-10-07 07:18] VITALS: O2SAT 99
[2024-10-07] MEDS: IPRATROPIUM NEB FS 0.5 MG/2.5 ML AMPUL.NEB NEB ONE (07:18)
[2024-10-07] MEDS: ALBUTEROL FS 2.5 MG/3 ML VIAL.NEB NEB ONE (07:18)
[2024-10-07] MEDS ORDERED: ALBUTEROL FS 2.5 MG/3 ML VIAL.NEB ONE (07:19)
[2024-10-07] MEDS ORDERED: IPRATROPIUM NEB FS 0.5 MG/2.5 ML AMPUL.NEB ONE (07:19)
[2024-10-07] MEDS ORDERED: methylPREDNISolone SOD SUCC 125 MG/2ML VIAL ONE (07:34)
[2024-10-07] MEDS ORDERED: Magnesium 1GM/D5W 100ML PREMIX 200 ML IV ONE (07:35)
[2024-10-07 07:38] VITALS: O2SAT 99
[2024-10-07 07:39] LABS: BASOPHILS % (AUTO) 0.4 % (0.0-2.0); EOSINOPHILS # (AUTO) 0.1 K/uL (0.0-0.7); HEMATOCRIT 39 % (33-45); HEMOGLOBIN 12.6 g/dL (11.5-14.8); LYMPHOCYTES % (AUTO) 17.4 % (20.0-44.0); MEAN CORPUSCULAR HEMOGLOBIN 29 PG (26.0-33.0); MEAN CORPUSCULAR HGB CONC 33 g/dl (31.0-36.0); MEAN CORPUSCULAR VOLUME 88 fL (82-100); MONOCYTES # (AUTO) 0.7 K/uL (0.1-1.30); NEUTROPHILS # (AUTO) 8.6 K/uL (1.8-8.9); NEUTROPHILS % (AUTO) 75.2 % (43.0-81.0); PLATELET COUNT (AUTO) 284 K/uL (150-450); RED CELL DISTRIBUTION WIDTH 15.6 % (11.5-15.0); WHITE BLOOD COUNT (AUTO) 11.4 K/uL (4.3-11.0)
[2024-10-07] MEDS: methylPREDNISolone SOD SUCC 125 MG/2ML VIAL IV ONE (07:40)
[2024-10-07] MEDS: Magnesium 1GM/D5W 100ML PREMIX 200 ML IV ONE (07:45)
[2024-10-07 07:54] LABS: ALANINE AMINOTRANSFERASE 48 U/L (12-78); ALBUMIN 3.3 g/dL (3.4-5.0); ALKALINE PHOSPHATASE 110 U/L (46-116); ASPARTATE AMINOTRANSFERASE 42 U/L (15-37); BILIRUBIN,DIRECT 0.3 mg/dL (0.0-0.2); BILIRUBIN,TOTAL 0.7 mg/dL (0.2-1.0); CALCIUM, SERUM 8.5 mg/dL (8.5-10.1); CARBON DIOXIDE 31 mmol/L (21-32); CHLORIDE 106 mmol/L (98-107); CREATININE 1.1 mg/dL (0.6-1.3); GLUCOSE 196 mg/dL (74-106); SODIUM SERUM 144 mmol/L (136-145); TOTAL PROTEIN, SERUM 6.5 g/dL (6.4-8.2); UREA NITROGEN, BLOOD 16 mg/dL (7-18)
[2024-10-07 07:56] LABS: LACTIC ACID 1.8 mmol/L (0.4-2.0)
[2024-10-07] MEDS: FUROSEMIDE 40 MG/4 ML VIAL IV ONE (08:15)
[2024-10-07] MEDS ORDERED: FUROSEMIDE 40 MG/4 ML VIAL ONE (08:46)
[2024-10-07] MEDS: ASPIRIN 81 MG TAB.CHEW PO ONE (09:30)
[2024-10-07] MEDS ORDERED: ASPIRIN 81 MG TAB.CHEW ONE (09:32)
[2024-10-07] MEDS ORDERED: ONDANSETRON HCL/PF 4 MG/2 ML VIAL IVP PRN (10:00)
[2024-10-07] MEDS ORDERED: ASPIRIN 81 MG TAB.CHEW PO SCH (10:30)
[2024-10-07] MEDS ORDERED: ENOXAPARIN SODIUM 30 MG/0.3 ML DISP.SYRIN ONE (10:47)
[2024-10-07] MEDS: ENOXAPARIN SODIUM 30 MG/0.3 ML DISP.SYRIN SQ SCH (10:49)
[2024-10-07] MEDS ORDERED: CARVEDILOL 6.25 MG TABLET PO SCH (11:00)
[2024-10-07] MEDS ORDERED: CARVEDILOL 6.25 MG TABLET PO ONE (11:00)
[2024-10-07] MEDS ORDERED: ALBUTEROL FS 2.5 MG/3 ML VIAL.NEB NEB PRN (11:30)
[2024-10-07] MEDS ORDERED: AMIODARONE 450 MG in IV D5W 250 ML IV ONE (11:30)
[2024-10-07] MEDS: AMIODARONE 150 MG in IV D5W 100 ML IV ONE (11:45)
[2024-10-07 12:00] VITALS: BP 145/94; TEMP 98.6; O2SAT 100
[2024-10-07] MEDS ORDERED: ENOXAPARIN SODIUM 30 MG/0.3 ML DISP.SYRIN SQ SCH (12:00)
[2024-10-07 12:25] LABS: CHOLESTEROL 183 mg/dL (<200); HDL CHOLESTEROL 64 mg/dL (40-60); LDL 115 mg/dL (0-99); TRIGLYCERIDES 61 mg/dL (30-150)
[2024-10-07] MEDS: POTASSIUM CHLORIDE 20 MEQ TAB.PRT.SR PO SCH (12:53)
[2024-10-07] MEDS: FUROSEMIDE 40 MG/4 ML VIAL IV SCH (12:54)
[2024-10-07] MEDS: LOSARTAN POTASSIUM 25 MG TABLET PO SCH (12:54)
[2024-10-07] MEDS: ATORVASTATIN 10 MG TABLET PO SCH (12:54)
[2024-10-07] MEDS: APIXABAN 5 MG TABLET PO SCH (12:56)
[2024-10-07] MEDS ORDERED: FUROSEMIDE 40 MG/4 ML VIAL IV ONE (13:00)
[2024-10-07] MEDS: ACETAMINOPHEN 325 MG TABLET PO PRN (13:16)
[2024-10-07] MEDS: VITAMIN B COMP W-C 1 TAB TABLET PO SCH (14:08)
[2024-10-07 16:00] VITALS: BP 147/102; TEMP 98.4; O2SAT 100
[2024-10-07] MEDS: CARVEDILOL 6.25 MG TABLET PO SCH (16:05)
[2024-10-07] MEDS: LIDOCAINE 5% (PATCH) 1 EA PATCH TP PRN (17:59)
[2024-10-07] MEDS: AMIODARONE 450 MG in IV D5W 241 ML IV PRN (18:15)
[2024-10-07 20:00] VITALS: BP 142/88; TEMP 97.4; O2SAT 97
[2024-10-07] MEDS: ATORVASTATIN 40 MG TABLET PO SCH (22:43)
[2024-10-08] VITALS: BP 137/85; TEMP 97.7; O2SAT 94
[2024-10-08 04:00] VITALS: BP 145/74; TEMP 97.2; O2SAT 95
[2024-10-08 08:00] VITALS: BP 138/76; TEMP 98.2; O2SAT 98
[2024-10-08] MEDS: SPIRONOLACTONE 25 MG TABLET PO SCH (08:33)
[2024-10-08] MEDS: ASPIRIN 81 MG TAB.CHEW PO SCH (08:33)
[2024-10-08] MEDS: DRONEDARONE HYDROCHLORIDE 400 MG TABLET PO SCH (09:48)
[2024-10-08] MEDS ORDERED: ASPI-1169 PO (11:46)
[2024-10-08] MEDS ORDERED: SPIR25TA6 PO (11:46)
[2024-10-08] MEDS ORDERED: APIX5TAB PO (11:46)
[2024-10-08] MEDS ORDERED: ATOR40TA PO (11:46)
[2024-10-08] MEDS ORDERED: DRON400T6 PO (11:46)
[2024-10-08] MEDS ORDERED: LOSA25TA27 PO (11:46)
[2024-10-08] MEDS ORDERED: CARV6.252 PO (11:46)
[2024-10-08] MEDS ORDERED: FURO-144 PO (11:47)
[2024-10-08 11:59] LABS: BASOPHILS % (AUTO) 0.1 % (0.0-2.0); HEMATOCRIT 38 % (33-45); HEMOGLOBIN 12.2 g/dL (11.5-14.8); LYMPHOCYTES # (AUTO) 1.2 K/uL (0.8-4.8); LYMPHOCYTES % (AUTO) 7.3 % (20.0-44.0); MEAN CORPUSCULAR HEMOGLOBIN 28 PG (26.0-33.0); MEAN CORPUSCULAR HGB CONC 33 g/dl (31.0-36.0); MEAN CORPUSCULAR VOLUME 87 fL (82-100); MONOCYTES # (AUTO) 1.7 K/uL (0.1-1.30); MONOCYTES % (AUTO) 9.8 % (2.0-12.0); NEUTROPHILS # (AUTO) 14.1 K/uL (1.8-8.9); NEUTROPHILS % (AUTO) 82.8 % (43.0-81.0); PLATELET COUNT (AUTO) 279 K/uL (150-450); RED CELL DISTRIBUTION WIDTH 15.7 % (11.5-15.0)
[2024-10-08 12:00] VITALS: BP 131/82; TEMP 97.5; O2SAT 95
[2024-10-08 12:15] LABS: ALANINE AMINOTRANSFERASE 39 U/L (12-78); ALBUMIN 3.5 g/dL (3.4-5.0); ALKALINE PHOSPHATASE 92 U/L (46-116); ASPARTATE AMINOTRANSFERASE 20 U/L (15-37); BILIRUBIN,TOTAL 0.3 mg/dL (0.2-1.0); CALCIUM, SERUM 8.7 mg/dL (8.5-10.1); CARBON DIOXIDE 34 mmol/L (21-32); CHLORIDE 102 mmol/L (98-107); CREATININE 1.2 mg/dL (0.6-1.3); GLUCOSE 98 mg/dL (74-106); MAGNESIUM 2.4 mg/dL (1.8-2.4); PHOSPHORUS 5.3 mg/dL (2.5-4.9); POTASSIUM 4.2 mmol/L (3.5-5.1); SODIUM SERUM 140 mmol/L (136-145); TOTAL PROTEIN, SERUM 6.5 g/dL (6.4-8.2); UREA NITROGEN, BLOOD 38 mg/dL (7-18)
[2024-10-14] MEDS ORDERED: APIXABAN 5 MG TABLET PO SCH (09:00)
== END 2024-10-08 15:41 | disposition home or self-care (01) | DRG 302 ==
LOC: ER 07:05 → TELE1 10:58 → TELE-TD 11:27
PROVIDERS: ADMIT Nurse Practitioner Acute Care; ATTEND Nurse Practitioner Acute Care
DX: I25.5 Ischemic cardiomyopathy (principal); G93.41 Metabolic encephalopathy; J96.01 Acute respiratory failure with hypoxia; I50.23 Acute on chronic systolic (congestive) heart failure; D68.59 Other primary thrombophilia; N17.9 Acute kidney failure, unspecified; I11.0 Hypertensive heart disease with heart failure; I25.2 Old myocardial infarction; I25.10 Atherosclerotic heart disease of native coronary artery without angina pectoris; Z95.5 Presence of coronary angioplasty implant and graft; E78.5 Hyperlipidemia, unspecified; J45.909 Unspecified asthma, uncomplicated; Z79.51 Long term (current) use of inhaled steroids; Z79.82 Long term (current) use of aspirin; Z79.899 Other long term (current) drug therapy; I48.91 Unspecified atrial fibrillation; J44.9 Chronic obstructive pulmonary disease, unspecified; D72.9 Disorder of white blood cells, unspecified; R73.9 Hyperglycemia, unspecified; F43.9 Reaction to severe stress, unspecified; F03.90 Unspecified dementia, unspecified severity, without behavioral disturbance, psychotic disturbance, mood disturbance, and anxiety; Z87.891 Personal history of nicotine dependence
CPT/HCPCS: 36415; 71045-TC; 80048-TC; 80053-TC; 80061-TC; 80076-TC; 83605-TC; 83735-TC; 83880; 84100-TC; 84484-TC; 85025-TC; 85378-TC; 87040-TC; 93970-TC; 97116-TC; 97530-TC; A4223; G0378; J0282; J1650; J1940; J2919; J3475; J7060

== ENCOUNTER 2024-11-12 17:32 | Inpatient (IN) | payer MEDICARE, OTHER ==
[~2024-11-12] VITALS: Ht 162.6 cm; Wt 74.8 kg
[~2024-11-12 17:32] MED LIST changes: -ALBU90AE IH; +APIX5TAB PO; +ASPI-1169 PO; -ASPI-1420 PO; +CARV6.252 PO; -CEPH500C2 PO; -CLIN300C12 PO; -CLON0.1T PO; +DRON400T6 PO; -ISOS30TA86 PO; -ISOS60TA72 PO; +LOSA25TA27 PO; -METO25TA4 PO; -POLY17PO4 PO; -SPIR25TA PO; +SPIR25TA6 PO; -SULF1TAB48 PO
[2024-11-12] MEDS ORDERED: ALBUTEROL FS 2.5 MG/3 ML VIAL.NEB ONE (18:12)
[2024-11-12] MEDS ORDERED: IPRATROPIUM NEB FS 0.5 MG/2.5 ML AMPUL.NEB ONE (18:12)
[2024-11-12 18:30] VITALS: O2SAT 93
[2024-11-12 18:30] LABS: ABG BASE EXCESS -0.5 mmol/L (-2.0-3.0); ABG OXYGEN SATURATION 92.8 % (94.0-98.0); ABG PCO2 39.3 mmHg (32.0-45.0); ABG PH 7.404 (7.350-7.450); ABG PO2 66.6 mmHg (83.0-108.0); ABG TOTAL HEMOGLOBIN 13.5 G/dL (12.0-16.0); COHb 0.2 % (0.5-1.5); O2Hb 92.6 % (94.0-97.0); SITE, ABG LEFT RADIAL
[2024-11-12] MEDS: ALBUTEROL FS 2.5 MG/3 ML VIAL.NEB CONTNEB ONE (18:30)
[2024-11-12] MEDS: IPRATROPIUM NEB FS 0.5 MG/2.5 ML AMPUL.NEB NEB ONE (18:30)
[2024-11-12] MEDS ORDERED: methylPREDNISolone SOD SUCC 125 MG/2ML VIAL ONE (18:31)
[2024-11-12 18:33] LABS: BASOPHILS % (AUTO) 0.3 % (0.0-2.0); EOSINOPHILS # (AUTO) 0.2 K/uL (0.0-0.7); EOSINOPHILS % (AUTO) 2.4 % (0.0-6.0); HEMATOCRIT 42 % (33-45); HEMOGLOBIN 13.6 g/dL (11.5-14.8); LYMPHOCYTES # (AUTO) 1.6 K/uL (0.8-4.8); LYMPHOCYTES % (AUTO) 21.9 % (20.0-44.0); MEAN CORPUSCULAR HEMOGLOBIN 29 PG (26.0-33.0); MEAN CORPUSCULAR HGB CONC 32 g/dl (31.0-36.0); MEAN CORPUSCULAR VOLUME 89 fL (82-100); MONOCYTES # (AUTO) 0.7 K/uL (0.1-1.30); MONOCYTES % (AUTO) 9.2 % (2.0-12.0); NEUTROPHILS # (AUTO) 4.9 K/uL (1.8-8.9); NEUTROPHILS % (AUTO) 66.2 % (43.0-81.0); PLATELET COUNT (AUTO) 195 K/uL (150-450); RED BLOOD CELL COUNT(AUTO) 4.77 MIL/uL (4.0-5.2); RED CELL DISTRIBUTION WIDTH 15.8 % (11.5-15.0); WHITE BLOOD COUNT (AUTO) 7.4 K/uL (4.3-11.0)
[2024-11-12] MEDS: methylPREDNISolone SOD SUCC 125 MG/2ML VIAL IV ONE (18:44)
[2024-11-12 18:45] VITALS: O2SAT 97
[2024-11-12 18:46] VITALS: O2SAT 97
[2024-11-12 18:47] LABS: CALCIUM, SERUM 9.1 mg/dL (8.5-10.1); CARBON DIOXIDE 24 mmol/L (21-32); CHLORIDE 106 mmol/L (98-107); CREATININE 0.8 mg/dL (0.6-1.3); GLUCOSE 90 mg/dL (74-106); SODIUM SERUM 139 mmol/L (136-145); UREA NITROGEN, BLOOD 32 mg/dL (7-18)
[2024-11-12 18:55] LABS: ALANINE AMINOTRANSFERASE 16 U/L (12-78); ALBUMIN 3.9 g/dL (3.4-5.0); ALKALINE PHOSPHATASE 82 U/L (46-116); ASPARTATE AMINOTRANSFERASE 14 U/L (15-37); BILIRUBIN,DIRECT 0.1 mg/dL (0.0-0.2); BILIRUBIN,TOTAL 0.4 mg/dL (0.2-1.0)
[2024-11-12 19:01] VITALS: O2SAT 96
[2024-11-12 19:57] LABS: LACTIC ACID 1.6 mmol/L (0.4-2.0)
[2024-11-12] MEDS: DRONEDARONE HYDROCHLORIDE 400 MG TABLET PO SCH (20:00)
[2024-11-12] MEDS ORDERED: APIXABAN 5 MG TABLET PO SCH (20:00)
[2024-11-12] MEDS ORDERED: ACETAMINOPHEN 325 MG TABLET PO PRN (21:30)
[2024-11-12] MEDS ORDERED: ENOXAPARIN SODIUM 40 MG/0.4 ML DISP.SYRIN SQ SCH (21:30)
[2024-11-12] MEDS ORDERED: ONDANSETRON HCL/PF 4 MG/2 ML VIAL IVP PRN (21:30)
[2024-11-12] MEDS: CARVEDILOL 6.25 MG TABLET PO SCH (22:34)
[2024-11-12] MEDS: ATORVASTATIN 40 MG TABLET PO SCH (22:34)
[2024-11-12] MEDS: FUROSEMIDE 20 MG/2 ML VIAL IV SCH (22:36)
[2024-11-13] VITALS (15 sets, daily range): BP systolic 119–163; BP diastolic 70–93; TEMP 97.7–98.1; O2SAT 91–99
[2024-11-13] MEDS: IPRATROPIUM NEB FS 0.5 MG/2.5 ML AMPUL.NEB NEB SCH (01:56)
[2024-11-13] MEDS: ALBUTEROL HALF STRENGTH 1.25 MG/3 ML VIAL.NEB NEB SCH (01:56)
[2024-11-13] MEDS: IPRATROPIUM NEB FS 0.5 MG/2.5 ML AMPUL.NEB NEB PRN (04:17)
[2024-11-13] MEDS: ALBUTEROL HALF STRENGTH 1.25 MG/3 ML VIAL.NEB NEB PRN (04:17)
[2024-11-13] MEDS: methylPREDNISolone SOD SUCC 40 MG/ML VIAL IV SCH (05:15)
[2024-11-13 06:54] LABS: BASOPHILS % (AUTO) 0.1 % (0.0-2.0); HEMATOCRIT 42 % (33-45); HEMOGLOBIN 13.7 g/dL (11.5-14.8); LYMPHOCYTES # (AUTO) 0.6 K/uL (0.8-4.8); LYMPHOCYTES % (AUTO) 12.9 % (20.0-44.0); MEAN CORPUSCULAR HEMOGLOBIN 28 PG (26.0-33.0); MEAN CORPUSCULAR HGB CONC 33 g/dl (31.0-36.0); MEAN CORPUSCULAR VOLUME 86 fL (82-100); MONOCYTES # (AUTO) 0.1 K/uL (0.1-1.30); MONOCYTES % (AUTO) 1.1 % (2.0-12.0); NEUTROPHILS % (AUTO) 85.9 % (43.0-81.0); PLATELET COUNT (AUTO) 228 K/uL (150-450); RED BLOOD CELL COUNT(AUTO) 4.89 MIL/uL (4.0-5.2); RED CELL DISTRIBUTION WIDTH 15.1 % (11.5-15.0); WHITE BLOOD COUNT (AUTO) 4.7 K/uL (4.3-11.0)
[2024-11-13 06:59] LABS: CALCIUM, SERUM 9.6 mg/dL (8.5-10.1); PHOSPHORUS 4.4 mg/dL (2.5-4.9)
[2024-11-13] MEDS: ASPIRIN 81 MG TAB.CHEW PO SCH (08:38)
[2024-11-13] MEDS: SPIRONOLACTONE 25 MG TABLET PO SCH (08:39)
[2024-11-13] MEDS: LOSARTAN POTASSIUM 25 MG TABLET PO SCH (08:39)
[2024-11-13] MEDS ORDERED: HOME MED MISCELLANEOUS XX SCH (10:30)
[2024-11-13] MEDS ORDERED: Z GUARD REMEDY 4 OZ OINT TP PRN (10:30)
[2024-11-13] MEDS: FUROSEMIDE 40 MG/4 ML VIAL IV SCH ×2 (10:57→16:09)
[2024-11-13] MEDS ORDERED: FUROSEMIDE 40 MG/4 ML VIAL IV SCH (14:30)
[2024-11-14] VITALS (13 sets, daily range): BP systolic 115–135; BP diastolic 58–84; TEMP 97–98.2; O2SAT 92–98
[2024-11-14 07:06] LABS: HEMATOCRIT 38 % (33-45); HEMOGLOBIN 12.8 g/dL (11.5-14.8); LYMPHOCYTES % (AUTO) 8.1 % (20.0-44.0); MEAN CORPUSCULAR HEMOGLOBIN 29 PG (26.0-33.0); MEAN CORPUSCULAR HGB CONC 34 g/dl (31.0-36.0); MEAN CORPUSCULAR VOLUME 86 fL (82-100); MONOCYTES # (AUTO) 0.6 K/uL (0.1-1.30); MONOCYTES % (AUTO) 5.1 % (2.0-12.0); NEUTROPHILS # (AUTO) 10.7 K/uL (1.8-8.9); NEUTROPHILS % (AUTO) 86.8 % (43.0-81.0); PLATELET COUNT (AUTO) 232 K/uL (150-450); RED BLOOD CELL COUNT(AUTO) 4.44 MIL/uL (4.0-5.2); WHITE BLOOD COUNT (AUTO) 12.3 K/uL (4.3-11.0)
[2024-11-14 07:28] LABS: CALCIUM, SERUM 9.1 mg/dL (8.5-10.1); CREATININE 1.4 mg/dL (0.6-1.3); POTASSIUM 4.1 mmol/L (3.5-5.1)
[2024-11-14] MEDS: methylPREDNISolone SOD SUCC 40 MG/ML VIAL IV SCH (08:48)
[2024-11-15] VITALS (9 sets, daily range): BP systolic 125–141; BP diastolic 61–99; TEMP 97.6–98.4; O2SAT 93–98
[2024-11-15 07:16] LABS: CALCIUM, SERUM 8.6 mg/dL (8.5-10.1); CREATININE 1.2 mg/dL (0.6-1.3); POTASSIUM 3.7 mmol/L (3.5-5.1)
[2024-11-15 08:09] LABS: BASOPHILS % (AUTO) 0.1 % (0.0-2.0); HEMATOCRIT 38 % (33-45); HEMOGLOBIN 12.4 g/dL (11.5-14.8); LYMPHOCYTES # (AUTO) 1.6 K/uL (0.8-4.8); LYMPHOCYTES % (AUTO) 14.1 % (20.0-44.0); MEAN CORPUSCULAR HEMOGLOBIN 28 PG (26.0-33.0); MEAN CORPUSCULAR HGB CONC 33 g/dl (31.0-36.0); MEAN CORPUSCULAR VOLUME 86 fL (82-100); NEUTROPHILS # (AUTO) 8.6 K/uL (1.8-8.9); NEUTROPHILS % (AUTO) 76.8 % (43.0-81.0); PLATELET COUNT (AUTO) 221 K/uL (150-450); RED BLOOD CELL COUNT(AUTO) 4.42 MIL/uL (4.0-5.2); RED CELL DISTRIBUTION WIDTH 15.3 % (11.5-15.0); WHITE BLOOD COUNT (AUTO) 11.2 K/uL (4.3-11.0)
[2024-11-15] MEDS: ALBUTEROL FS 2.5 MG/3 ML VIAL.NEB NEB SCH (13:14)
[2024-11-15] MEDS: IPRATROPIUM NEB FS 0.5 MG/2.5 ML AMPUL.NEB NEB SCH (13:14)
[2024-11-16 07:03] LABS: HEMATOCRIT 39 % (33-45); LYMPHOCYTES # (AUTO) 1.6 K/uL (0.8-4.8); LYMPHOCYTES % (AUTO) 15.2 % (20.0-44.0); MEAN CORPUSCULAR HEMOGLOBIN 28 PG (26.0-33.0); MEAN CORPUSCULAR HGB CONC 33 g/dl (31.0-36.0); MEAN CORPUSCULAR VOLUME 86 fL (82-100); MONOCYTES # (AUTO) 1.1 K/uL (0.1-1.30); MONOCYTES % (AUTO) 10.3 % (2.0-12.0); NEUTROPHILS # (AUTO) 7.9 K/uL (1.8-8.9); NEUTROPHILS % (AUTO) 74.5 % (43.0-81.0); PLATELET COUNT (AUTO) 227 K/uL (150-450); RED BLOOD CELL COUNT(AUTO) 4.59 MIL/uL (4.0-5.2); RED CELL DISTRIBUTION WIDTH 15.5 % (11.5-15.0); WHITE BLOOD COUNT (AUTO) 10.6 K/uL (4.3-11.0)
[2024-11-16 07:16] VITALS: O2SAT 95
[2024-11-16 07:24] LABS: CALCIUM, SERUM 8.9 mg/dL (8.5-10.1); CREATININE 0.9 mg/dL (0.6-1.3); POTASSIUM 4.5 mmol/L (3.5-5.1)
[2024-11-16 07:31] VITALS: O2SAT 96
[2024-11-16 08:38] VITALS: BP 164/82; TEMP 97.8; O2SAT 99
[2024-11-16 08:54] VITALS: BP 164/82
[2024-11-16] MEDS ORDERED: ALBU1.25 NEB (09:47)
[2024-11-16] MEDS ORDERED: IPRA0.2S9 NEB (09:47)
[2024-11-16] MEDS ORDERED: PRED20TA PO (09:47)
[2024-11-16] MEDS ORDERED: FURO-144 PO (09:47)
[2024-11-16] MEDS ORDERED: FLUT1BLS6 IH (09:47)
[2024-11-16] MEDS ORDERED: NEBU-171 MC (11:54)
[2024-11-16 13:41] VITALS: O2SAT 94
[2024-11-16 13:56] VITALS: O2SAT 94
== END 2024-11-16 17:00 | disposition home health service (06) | DRG 291 ==
LOC: ER 17:32 → TELE 20:59 → MED 11-15 11:00
PROVIDERS: ADMIT Nurse Practitioner Acute Care; ATTEND Nurse Practitioner Acute Care
DX: I11.0 Hypertensive heart disease with heart failure (principal); G93.41 Metabolic encephalopathy; J96.01 Acute respiratory failure with hypoxia; I50.43 Acute on chronic combined systolic (congestive) and diastolic (congestive) heart failure; J44.1 Chronic obstructive pulmonary disease with (acute) exacerbation; D68.59 Other primary thrombophilia; I25.5 Ischemic cardiomyopathy; I25.2 Old myocardial infarction; I48.91 Unspecified atrial fibrillation; I25.10 Atherosclerotic heart disease of native coronary artery without angina pectoris; Z91.148 Patient's other noncompliance with medication regimen for other reason; I48.0 Paroxysmal atrial fibrillation; Z79.01 Long term (current) use of anticoagulants; E78.5 Hyperlipidemia, unspecified; E11.9 Type 2 diabetes mellitus without complications; Z95.5 Presence of coronary angioplasty implant and graft; Z87.891 Personal history of nicotine dependence; Z79.899 Other long term (current) drug therapy; R79.89 Other specified abnormal findings of blood chemistry; M89.8X9 Other specified disorders of bone, unspecified site
CPT/HCPCS: 36415; 71045-TC; 80048-TC; 80076-TC; 82803-TC; 83605-TC; 83735-TC; 83880; 84100-TC; 84484-TC; 85025-TC; 85378-TC; 87040-TC; 93307-TC; 94761-TC; 94799-TC; 97112-TC; 97116-TC; 97530-TC; G0378; J1940; J2919

== ENCOUNTER 2025-01-26 16:36 | Inpatient (IN) | payer MEDICARE, OTHER ==
[~2025-01-26] VITALS: Ht 165.1 cm; Wt 79.4 kg
[~2025-01-26 16:36] MED LIST changes: +ALBU1.25 NEB; +FLUT1BLS6 IH; +IPRA0.2S9 NEB; +NEBU-171 MC; +PRED20TA PO
[2025-01-26] MEDS ORDERED: ALBUTEROL FS 2.5 MG/3 ML VIAL.NEB ONE (16:47)
[2025-01-26] MEDS ORDERED: IPRATROPIUM NEB FS 0.5 MG/2.5 ML AMPUL.NEB ONE (16:47)
[2025-01-26] MEDS ORDERED: methylPREDNISolone SOD SUCC 40 MG/ML VIAL ONE (16:48)
[2025-01-26 16:53] VITALS: O2SAT 96
[2025-01-26] MEDS: ALBUTEROL FS 2.5 MG/3 ML VIAL.NEB NEB ONE (16:53)
[2025-01-26] MEDS: IPRATROPIUM NEB FS 0.5 MG/2.5 ML AMPUL.NEB NEB ONE (16:53)
[2025-01-26] MEDS: methylPREDNISolone SOD SUCC 125 MG/2ML VIAL IV ONE (17:13)
[2025-01-26 17:22] LABS: BASOPHILS # (AUTO) 0.1 K/uL (0.0-0.2); BASOPHILS % (AUTO) 0.5 % (0.0-2.0); EOSINOPHILS # (AUTO) 0.2 K/uL (0.0-0.7); EOSINOPHILS % (AUTO) 1.4 % (0.0-6.0); HEMATOCRIT 41 % (33-45); HEMOGLOBIN 13.4 g/dL (11.5-14.8); LYMPHOCYTES # (AUTO) 1.2 K/uL (0.8-4.8); LYMPHOCYTES % (AUTO) 10.5 % (20.0-44.0); MEAN CORPUSCULAR HEMOGLOBIN 28 PG (26.0-33.0); MEAN CORPUSCULAR HGB CONC 33 g/dl (31.0-36.0); MEAN CORPUSCULAR VOLUME 86 fL (82-100); MONOCYTES # (AUTO) 0.7 K/uL (0.1-1.30); NEUTROPHILS # (AUTO) 9.3 K/uL (1.8-8.9); NEUTROPHILS % (AUTO) 81.6 % (43.0-81.0); PLATELET COUNT (AUTO) 211 K/uL (150-450); RED BLOOD CELL COUNT(AUTO) 4.75 MIL/uL (4.0-5.2); RED CELL DISTRIBUTION WIDTH 15.2 % (11.5-15.0); WHITE BLOOD COUNT (AUTO) 11.4 K/uL (4.3-11.0)
[2025-01-26 17:25] VITALS: O2SAT 99
[2025-01-26] MEDS ORDERED: Magnesium 1GM/D5W 100ML PREMIX 100 ML IV ONE (17:26)
[2025-01-26 17:31] LABS: CALCIUM, SERUM 9.6 mg/dL (8.5-10.1); CARBON DIOXIDE 29 mmol/L (21-32); CHLORIDE 106 mmol/L (98-107); CREATININE 0.8 mg/dL (0.6-1.3); GLUCOSE 121 mg/dL (74-106); POTASSIUM 4.3 mmol/L (3.5-5.1); SODIUM SERUM 141 mmol/L (136-145); UREA NITROGEN, BLOOD 21 mg/dL (7-18)
[2025-01-26] MEDS: Magnesium 1GM/D5W 100ML PREMIX 100 ML IV ONE (17:33)
[2025-01-26 17:46] LABS: ALANINE AMINOTRANSFERASE 36 U/L (12-78); ALBUMIN 3.8 g/dL (3.4-5.0); ALKALINE PHOSPHATASE 93 U/L (46-116); ASPARTATE AMINOTRANSFERASE 25 U/L (15-37); BILIRUBIN,DIRECT 0.2 mg/dL (0.0-0.2); BILIRUBIN,TOTAL 0.8 mg/dL (0.2-1.0); NT-PRO BNP 4014 pg/mL (0-125)
[2025-01-26 18:04] LABS: ABG BASE EXCESS -2.1 mmol/L (-2.0-3.0); ABG PH 7.354 (7.350-7.450); ABG PO2 136.8 mmHg (83.0-108.0); SITE, ABG LEFT RADIAL
[2025-01-26] MEDS ORDERED: ATOR40TA PO (18:27)
[2025-01-26] MEDS ORDERED: ASPI-1169 PO (18:27)
[2025-01-26] MEDS ORDERED: ACET-868 PO (18:27)
[2025-01-26] MEDS ORDERED: DOCU100T2 PO (18:27)
[2025-01-26] MEDS ORDERED: ALBU8.5H8 IH (18:27)
[2025-01-26] MEDS ORDERED: LOSA50TA39 PO (18:27)
[2025-01-26] MEDS ORDERED: METO25TA4 PO (18:27)
[2025-01-26 20:45] VITALS: BP 150/76; TEMP 97.9; O2SAT 99
[2025-01-26] MEDS ORDERED: IPRATROPIUM NEB FS 0.5 MG/2.5 ML AMPUL.NEB NEB PRN (22:00)
[2025-01-26] MEDS ORDERED: MAG HYDROX/AL HYDROX/SIMETH 30 ML UDC PO PRN (22:00)
[2025-01-26] MEDS ORDERED: ALBUTEROL SULFATE 8 GM HFA.AER.AD IH PRN (22:30)
[2025-01-26] MEDS ORDERED: ACETAMINOPHEN 325 MG TABLET PO PRN (22:30)
[2025-01-26] MEDS: methylPREDNISolone SOD SUCC 40 MG/ML VIAL IV SCH (22:31)
[2025-01-26] MEDS: ENOXAPARIN SODIUM 40 MG/0.4 ML DISP.SYRIN SQ SCH (22:42)
[2025-01-26] MEDS: ONDANSETRON HCL/PF 4 MG/2 ML VIAL IVP PRN (23:04)
[2025-01-27] VITALS (9 sets, daily range): BP systolic 118–139; BP diastolic 62–75; TEMP 98–98.2; O2SAT 90–99
[2025-01-27] MEDS: IPRATROPIUM NEB FS 0.5 MG/2.5 ML AMPUL.NEB NEB SCH (01:30)
[2025-01-27] MEDS: ALBUTEROL HALF STRENGTH 1.25 MG/3 ML VIAL.NEB NEB SCH (01:30)
[2025-01-27] MEDS: ACETAMINOPHEN 325 MG TABLET PO PRN (02:07)
[2025-01-27] MEDS: MORPHINE SULFATE INJ 2 MG/ML DISP.SYRIN IV PRN (03:55)
[2025-01-27 08:07] LABS: BASOPHILS % (AUTO) 0.1 % (0.0-2.0); HEMATOCRIT 40 % (33-45); LYMPHOCYTES # (AUTO) 0.5 K/uL (0.8-4.8); LYMPHOCYTES % (AUTO) 7.9 % (20.0-44.0); MEAN CORPUSCULAR HEMOGLOBIN 28 PG (26.0-33.0); MEAN CORPUSCULAR HGB CONC 33 g/dl (31.0-36.0); MEAN CORPUSCULAR VOLUME 87 fL (82-100); MONOCYTES # (AUTO) 0.1 K/uL (0.1-1.30); MONOCYTES % (AUTO) 1.4 % (2.0-12.0); NEUTROPHILS # (AUTO) 5.4 K/uL (1.8-8.9); NEUTROPHILS % (AUTO) 90.6 % (43.0-81.0); PLATELET COUNT (AUTO) 208 K/uL (150-450); RED BLOOD CELL COUNT(AUTO) 4.61 MIL/uL (4.0-5.2); RED CELL DISTRIBUTION WIDTH 14.8 % (11.5-15.0)
[2025-01-27 08:09] LABS: CALCIUM, SERUM 9.4 mg/dL (8.5-10.1); MAGNESIUM 2.6 mg/dL (1.8-2.4); PHOSPHORUS 5.2 mg/dL (2.5-4.9); POTASSIUM 4.9 mmol/L (3.5-5.1)
[2025-01-27] MEDS: METOPROLOL SUCCINATE 25 MG TAB.SR.24H PO SCH (08:31)
[2025-01-27] MEDS: DOCUSATE SODIUM 100 MG CAPSULE PO SCH (08:31)
[2025-01-27] MEDS: ASPIRIN 81 MG TAB.CHEW PO SCH (08:31)
[2025-01-27] MEDS: ATORVASTATIN 40 MG TABLET PO SCH (08:31)
[2025-01-27] MEDS: LOSARTAN POTASSIUM 50 MG TABLET PO SCH (08:31)
[2025-01-27] MEDS: MAGNESIUM CITRATE 296 ML BOTTLE PO ONE (10:57)
[2025-01-28] VITALS (9 sets, daily range): BP systolic 125–140; BP diastolic 89–97; TEMP 97.3–98.2; O2SAT 91–98
[2025-01-28 06:43] LABS: BASOPHILS % (AUTO) 0.3 % (0.0-2.0); HEMATOCRIT 39 % (33-45); HEMOGLOBIN 12.6 g/dL (11.5-14.8); LYMPHOCYTES # (AUTO) 0.8 K/uL (0.8-4.8); LYMPHOCYTES % (AUTO) 5.9 % (20.0-44.0); MEAN CORPUSCULAR HEMOGLOBIN 29 PG (26.0-33.0); MEAN CORPUSCULAR HGB CONC 33 g/dl (31.0-36.0); MEAN CORPUSCULAR VOLUME 89 fL (82-100); MONOCYTES # (AUTO) 0.8 K/uL (0.1-1.30); MONOCYTES % (AUTO) 5.9 % (2.0-12.0); NEUTROPHILS # (AUTO) 11.2 K/uL (1.8-8.9); NEUTROPHILS % (AUTO) 87.9 % (43.0-81.0); PLATELET COUNT (AUTO) 178 K/uL (150-450); RED BLOOD CELL COUNT(AUTO) 4.38 MIL/uL (4.0-5.2); RED CELL DISTRIBUTION WIDTH 15.5 % (11.5-15.0); WHITE BLOOD COUNT (AUTO) 12.8 K/uL (4.3-11.0)
[2025-01-28 07:16] LABS: CALCIUM, SERUM 9.1 mg/dL (8.5-10.1); CREATININE 1.2 mg/dL (0.6-1.3); POTASSIUM 5.5 mmol/L (3.5-5.1)
[2025-01-28] MEDS ORDERED: NA PHOS,M-B/NA PHOS,DI-BA 1 EA ENEMA RC PRN (10:30)
[2025-01-28] MEDS: SODIUM POLYSTYRENE SULFONATE 15 G/60 ML BOTTLE PO ONE (10:56)
[2025-01-28] MEDS: APIXABAN 5 MG TABLET PO SCH (10:57)
[2025-01-28] MEDS: MAGNESIUM CITRATE 296 ML BOTTLE PO ONE (11:59)
[2025-01-28] MEDS: IV NS 0.9% 1,000 ML IV SCH (13:20)
[2025-01-29] VITALS (11 sets, daily range): BP systolic 140–155; BP diastolic 90–100; TEMP 97.3–98.4; O2SAT 92–99
[2025-01-29 07:02] LABS: BASOPHILS % (AUTO) 0.2 % (0.0-2.0); EOSINOPHILS % (AUTO) 0.1 % (0.0-6.0); HEMATOCRIT 41 % (33-45); HEMOGLOBIN 13.2 g/dL (11.5-14.8); MEAN CORPUSCULAR HEMOGLOBIN 29 PG (26.0-33.0); MEAN CORPUSCULAR HGB CONC 32 g/dl (31.0-36.0); MEAN CORPUSCULAR VOLUME 89 fL (82-100); MONOCYTES % (AUTO) 9.4 % (2.0-12.0); NEUTROPHILS # (AUTO) 7.9 K/uL (1.8-8.9); NEUTROPHILS % (AUTO) 72.3 % (43.0-81.0); PLATELET COUNT (AUTO) 185 K/uL (150-450); RED BLOOD CELL COUNT(AUTO) 4.62 MIL/uL (4.0-5.2); RED CELL DISTRIBUTION WIDTH 15.5 % (11.5-15.0); WHITE BLOOD COUNT (AUTO) 10.9 K/uL (4.3-11.0)
[2025-01-29 07:10] LABS: CALCIUM, SERUM 8.9 mg/dL (8.5-10.1); CREATININE 0.9 mg/dL (0.6-1.3); POTASSIUM 4.4 mmol/L (3.5-5.1)
[2025-01-29] MEDS: methylPREDNISolone SOD SUCC 40 MG/ML VIAL IV SCH (10:08)
[2025-01-29] MEDS ORDERED: IV NS 0.9% 250 ML IV ONE (12:07)
[2025-01-29] MEDS ORDERED: CT SWABBABLE VALVE TRANS SET 1 EA INFUS.SET MC ONE (12:07)
[2025-01-29] MEDS ORDERED: IOHEXOL-350 100 ML VIAL IV ONE (12:07)
[2025-01-29 12:50] LABS: APPEARANCE,URINE CLEAR (CLEAR); BILIRUBIN,URINE NEGATIVE (NEGATIVE); BLOOD, URINE 1+ Ery/uL (NEGATIVE); COLOR,URINE YELLOW (YELLOW); KETONES,URINE NEGATIVE (NEGATIVE); LEUKOCYTE ESTERASE ,URINE NEGATIVE (NEGATIVE); NITRITE, URINE NEGATIVE (NEGATIVE); PH,URINE 5.5 (5.0-8.0); PROTEIN,URINE NEGATIVE (NEGATIVE); UGLUCOSE NEGATIVE (NEGATIVE); UROBILINOGEN,URINE 0.2 EU/dL (0.2)
[2025-01-29 13:02] LABS: ADD URINE CULTURE NO; BACTERIA,URINE Rare /HPF (None Seen); SQUAMOUS EPITHELIAL CELL,UR 0-2 /HPF (None Seen)
[2025-01-29 13:29] LABS: EOSINOPHIL,URINE None Seen
[2025-01-30] VITALS (11 sets, daily range): BP systolic 147–156; BP diastolic 88–100; TEMP 97.2–98; O2SAT 88–100
[2025-01-30 16:13] LABS: HEMATOCRIT 41 % (33-45); HEMOGLOBIN 13.6 g/dL (11.5-14.8); LYMPHOCYTES # (AUTO) 0.5 K/uL (0.8-4.8); LYMPHOCYTES % (AUTO) 5.1 % (20.0-44.0); MEAN CORPUSCULAR HEMOGLOBIN 29 PG (26.0-33.0); MEAN CORPUSCULAR HGB CONC 33 g/dl (31.0-36.0); MEAN CORPUSCULAR VOLUME 87 fL (82-100); MONOCYTES # (AUTO) 0.4 K/uL (0.1-1.30); MONOCYTES % (AUTO) 3.9 % (2.0-12.0); PLATELET COUNT (AUTO) 210 K/uL (150-450); RED BLOOD CELL COUNT(AUTO) 4.69 MIL/uL (4.0-5.2); WHITE BLOOD COUNT (AUTO) 9.9 K/uL (4.3-11.0)
[2025-01-30 16:23] LABS: CREATININE 0.9 mg/dL (0.6-1.3); POTASSIUM 4.4 mmol/L (3.5-5.1)
[2025-01-31] VITALS (7 sets, daily range): BP systolic 154–161; BP diastolic 88–105; TEMP 97.8; O2SAT 91–99
[2025-01-31] MEDS: ALBUTEROL HALF STRENGTH 1.25 MG/3 ML VIAL.NEB NEB PRN (03:23)
[2025-01-31] MEDS: IPRATROPIUM NEB FS 0.5 MG/2.5 ML AMPUL.NEB NEB PRN (03:23)
[2025-01-31 07:02] LABS: HEMATOCRIT 38 % (33-45); HEMOGLOBIN 12.6 g/dL (11.5-14.8); LYMPHOCYTES # (AUTO) 0.7 K/uL (0.8-4.8); LYMPHOCYTES % (AUTO) 6.8 % (20.0-44.0); MEAN CORPUSCULAR HEMOGLOBIN 29 PG (26.0-33.0); MEAN CORPUSCULAR HGB CONC 33 g/dl (31.0-36.0); MEAN CORPUSCULAR VOLUME 87 fL (82-100); MONOCYTES # (AUTO) 0.6 K/uL (0.1-1.30); MONOCYTES % (AUTO) 5.8 % (2.0-12.0); NEUTROPHILS # (AUTO) 9.4 K/uL (1.8-8.9); NEUTROPHILS % (AUTO) 87.4 % (43.0-81.0); PLATELET COUNT (AUTO) 207 K/uL (150-450); RED BLOOD CELL COUNT(AUTO) 4.36 MIL/uL (4.0-5.2); RED CELL DISTRIBUTION WIDTH 14.9 % (11.5-15.0); WHITE BLOOD COUNT (AUTO) 10.7 K/uL (4.3-11.0)
[2025-01-31 07:07] LABS: CALCIUM, SERUM 8.6 mg/dL (8.5-10.1); CREATININE 0.9 mg/dL (0.6-1.3); POTASSIUM 4.6 mmol/L (3.5-5.1)
[2025-01-31] MEDS: methylPREDNISolone SOD SUCC 40 MG/ML VIAL IV SCH (09:41)
[2025-01-31] MEDS ORDERED: ALBU8.5H8 IH (11:13)
[2025-01-31] MEDS ORDERED: APIX5TAB PO (11:13)
[2025-01-31] MEDS ORDERED: PRED20TA PO (11:13)
[2025-02-01] VITALS (8 sets, daily range): BP systolic 158–165; BP diastolic 97–99; TEMP 97.9; O2SAT 91–100
[2025-02-01 07:06] LABS: HEMATOCRIT 40 % (33-45); HEMOGLOBIN 12.8 g/dL (11.5-14.8); LYMPHOCYTES # (AUTO) 1.3 K/uL (0.8-4.8); LYMPHOCYTES % (AUTO) 12.6 % (20.0-44.0); MEAN CORPUSCULAR HEMOGLOBIN 28 PG (26.0-33.0); MEAN CORPUSCULAR HGB CONC 32 g/dl (31.0-36.0); MEAN CORPUSCULAR VOLUME 87 fL (82-100); MONOCYTES # (AUTO) 1.3 K/uL (0.1-1.30); MONOCYTES % (AUTO) 11.9 % (2.0-12.0); NEUTROPHILS % (AUTO) 75.5 % (43.0-81.0); PLATELET COUNT (AUTO) 212 K/uL (150-450); RED BLOOD CELL COUNT(AUTO) 4.56 MIL/uL (4.0-5.2); WHITE BLOOD COUNT (AUTO) 10.6 K/uL (4.3-11.0)
[2025-02-01 08:25] LABS: CALCIUM, SERUM 9.1 mg/dL (8.5-10.1); POTASSIUM 4.5 mmol/L (3.5-5.1)
== END 2025-02-01 12:44 | disposition home health service (06) | DRG 202 ==
LOC: ER 16:38 → TELE 18:33 → MED 01-28 10:11
PROVIDERS: ADMIT Nurse Practitioner Acute Care; ATTEND Internal Medicine
DX: J45.901 Unspecified asthma with (acute) exacerbation (principal); J96.01 Acute respiratory failure with hypoxia; D68.59 Other primary thrombophilia; I82.412 Acute embolism and thrombosis of left femoral vein; N17.9 Acute kidney failure, unspecified; Z79.01 Long term (current) use of anticoagulants; I25.10 Atherosclerotic heart disease of native coronary artery without angina pectoris; E66.01 Morbid (severe) obesity due to excess calories; I10 Essential (primary) hypertension; Z79.82 Long term (current) use of aspirin; Z79.51 Long term (current) use of inhaled steroids; I25.2 Old myocardial infarction; E78.5 Hyperlipidemia, unspecified; D72.829 Elevated white blood cell count, unspecified; I48.91 Unspecified atrial fibrillation; M89.8X9 Other specified disorders of bone, unspecified site; K59.00 Constipation, unspecified; I12.9 Hypertensive chronic kidney disease with stage 1 through stage 4 chronic kidney disease, or unspecified chronic kidney disease; N18.9 Chronic kidney disease, unspecified; E87.5 Hyperkalemia; T38.0X5A Adverse effect of glucocorticoids and synthetic analogues, initial encounter; Y92.9 Unspecified place or not applicable; Z68.29 Body mass index [BMI] 29.0-29.9, adult
CPT/HCPCS: 36415; 36600; 71045-TC; 76770-TC; 80048-TC; 80076-TC; 81001; 82570-TC; 82803-TC; 83735-TC; 83880; 84100-TC; 84300-TC; 84484-TC; 85025-TC; 93970-TC; 94760-TC; 94762-TC; 94799-TC; A4223; G0378; J1650; J2270; J2405; J2919; J3475; J7030; J7050; Q9967

== ENCOUNTER 2025-02-04 16:43 | Emergency (ER) | payer MEDICARE, OTHER ==
[~2025-02-04] VITALS: Ht 167.6 cm; Wt 78.9 kg
[~2025-02-04 16:43] MED LIST changes: +ACET-868 PO; +ALBU8.5H8 IH; +DOCU100T2 PO; +LOSA50TA39 PO; +METO25TA4 PO
[2025-02-04] MEDS ORDERED: IPRATROPIUM NEB FS 0.5 MG/2.5 ML AMPUL.NEB ONE (17:22)
[2025-02-04] MEDS ORDERED: ALBUTEROL FS 2.5 MG/3 ML VIAL.NEB ONE (17:22)
[2025-02-04] MEDS ORDERED: methylPREDNISolone SOD SUCC 125 MG/2ML VIAL ONE (17:33)
[2025-02-04 17:38] LABS: ABG BASE EXCESS 4.1 mmol/L (-2.0-3.0); ABG OXYGEN SATURATION 98.3 % (94.0-98.0); ABG PCO2 52.9 mmHg (32.0-45.0); ABG PH 7.378 (7.350-7.450); ABG PO2 141.4 mmHg (83.0-108.0); COHb 0.3 % (0.5-1.5); MetHb 0.1 % (0.0-1.5); O2Hb 97.9 % (94.0-97.0)
[2025-02-04 17:39] VITALS: O2SAT 99
[2025-02-04 17:39] LABS: BASOPHILS # (AUTO) 0.1 K/uL (0.0-0.2); BASOPHILS % (AUTO) 0.5 % (0.0-2.0); EOSINOPHILS % (AUTO) 0.2 % (0.0-6.0); HEMATOCRIT 41 % (33-45); HEMOGLOBIN 14.1 g/dL (11.5-14.8); LYMPHOCYTES # (AUTO) 0.6 K/uL (0.8-4.8); LYMPHOCYTES % (AUTO) 5.6 % (20.0-44.0); MEAN CORPUSCULAR HEMOGLOBIN 30 PG (26.0-33.0); MEAN CORPUSCULAR HGB CONC 34 g/dl (31.0-36.0); MEAN CORPUSCULAR VOLUME 87 fL (82-100); MONOCYTES # (AUTO) 0.3 K/uL (0.1-1.30); MONOCYTES % (AUTO) 2.4 % (2.0-12.0); NEUTROPHILS # (AUTO) 9.8 K/uL (1.8-8.9); NEUTROPHILS % (AUTO) 91.3 % (43.0-81.0); PLATELET COUNT (AUTO) 224 K/uL (150-450); RED BLOOD CELL COUNT(AUTO) 4.74 MIL/uL (4.0-5.2); RED CELL DISTRIBUTION WIDTH 14.7 % (11.5-15.0); WHITE BLOOD COUNT (AUTO) 10.7 K/uL (4.3-11.0)
[2025-02-04] MEDS: IPRATROPIUM NEB FS 0.5 MG/2.5 ML AMPUL.NEB NEB ONE (17:39)
[2025-02-04] MEDS: ALBUTEROL FS 2.5 MG/3 ML VIAL.NEB CONTNEB ONE (17:39)
[2025-02-04] MEDS: methylPREDNISolone SOD SUCC 125 MG/2ML VIAL IV ONE (17:42)
[2025-02-04 17:51] LABS: CALCIUM, SERUM 8.4 mg/dL (8.5-10.1); CARBON DIOXIDE 35 mmol/L (21-32); CHLORIDE 104 mmol/L (98-107); GLUCOSE 148 mg/dL (74-106); POTASSIUM 4.3 mmol/L (3.5-5.1); SODIUM SERUM 143 mmol/L (136-145); UREA NITROGEN, BLOOD 26 mg/dL (7-18)
[2025-02-04 17:54] VITALS: O2SAT 100
[2025-02-04 17:54] LABS: D-DIMER 0.31 mg/L(FEU (0.17-0.50); INR 1.03 (0.91-1.10); PARTIAL THROMBOPLASTIN TIME 27.1 SEC (24.3-34.3); PROTHROMBIN TIME 10.9 SECS (9.2-11.1)
[2025-02-04 17:55] VITALS: O2SAT 100
[2025-02-04 18:03] LABS: ALANINE AMINOTRANSFERASE 74 U/L (12-78); ALBUMIN 3.1 g/dL (3.4-5.0); ALKALINE PHOSPHATASE 69 U/L (46-116); ASPARTATE AMINOTRANSFERASE 24 U/L (15-37); BILIRUBIN,DIRECT 0.2 mg/dL (0.0-0.2); BILIRUBIN,TOTAL 0.5 mg/dL (0.2-1.0); NT-PRO BNP 3811 pg/mL (0-125)
[2025-02-04 18:04] LABS: LACTIC ACID 0.8 mmol/L (0.4-2.0)
[2025-02-04 18:05] VITALS: O2SAT 100
[2025-02-04 21:19] VITALS: BP 135/98; TEMP 97.8; O2SAT 100
== END 2025-02-04 21:23 | disposition home or self-care (01) ==
LOC: ER 16:45
DX: J45.901 Unspecified asthma with (acute) exacerbation (principal); I11.0 Hypertensive heart disease with heart failure; I50.9 Heart failure, unspecified; I25.2 Old myocardial infarction; D68.59 Other primary thrombophilia; E66.01 Morbid (severe) obesity due to excess calories; Z79.01 Long term (current) use of anticoagulants; Z79.52 Long term (current) use of systemic steroids; Z79.82 Long term (current) use of aspirin; Z79.899 Other long term (current) drug therapy; Z95.5 Presence of coronary angioplasty implant and graft; Z20.822 Contact with and (suspected) exposure to COVID-19
CPT/HCPCS: 36415; 36600; 71045-TC; 80048-TC; 80076-TC; 82803-TC; 83605-TC; 83880; 84484-TC; 85025-TC; 85378-TC; 85730-TC; 87040-TC; 94799-TC; J2919

== ENCOUNTER 2025-02-04 22:05 | Emergency (ER) | payer MEDICARE, OTHER ==
[~2025-02-04] VITALS: Ht 167.6 cm; Wt 78.9 kg
[~2025-02-04 22:05] MED LIST changes: -ALBU1.25 NEB; -ALBU18HF2 INH; -CARV6.252 PO; -DRON400T6 PO; -FLUT1BLS6 IH; -FURO-144 PO; -IPRA0.2S9 NEB; -LOSA25TA27 PO; -NEBU-171 MC; -SPIR25TA6 PO
[2025-02-04 22:24] VITALS: BP 144/84; TEMP 98.1
[2025-02-04 23:54] VITALS: O2SAT 92
== END 2025-02-04 23:54 | disposition home or self-care (01) ==
LOC: ER 22:07
DX: J45.909 Unspecified asthma, uncomplicated (principal); I11.0 Hypertensive heart disease with heart failure; I50.9 Heart failure, unspecified; I25.2 Old myocardial infarction; Z79.01 Long term (current) use of anticoagulants; Z79.52 Long term (current) use of systemic steroids; Z79.82 Long term (current) use of aspirin; Z79.899 Other long term (current) drug therapy; Z95.5 Presence of coronary angioplasty implant and graft

== ENCOUNTER 2025-04-18 19:41 | Inpatient (IN) | payer MEDICARE, OTHER ==
[~2025-04-18] VITALS: Ht 170.2 cm; Wt 78.5 kg
[2025-04-18 20:00] VITALS: O2SAT 98
[2025-04-18] MEDS ORDERED: Magnesium 1GM/D5W 100ML PREMIX 100 ML IV ONE ×2 (20:00→22:34)
[2025-04-18] MEDS ORDERED: methylPREDNISolone SOD SUCC 125 MG/2ML VIAL ONE (20:00)
[2025-04-18] MEDS ORDERED: ALBUTEROL FS 2.5 MG/3 ML VIAL.NEB ONE (20:02)
[2025-04-18] MEDS ORDERED: IPRATROPIUM NEB FS 0.5 MG/2.5 ML AMPUL.NEB ONE (20:02)
[2025-04-18 20:08] LABS: BASOPHILS % (AUTO) 0.3 % (0.0-2.0); EOSINOPHILS # (AUTO) 0.1 K/uL (0.0-0.7); EOSINOPHILS % (AUTO) 1.6 % (0.0-6.0); HEMATOCRIT 41 % (33-45); HEMOGLOBIN 13.6 g/dL (11.5-14.8); LYMPHOCYTES # (AUTO) 1.4 K/uL (0.8-4.8); LYMPHOCYTES % (AUTO) 18.8 % (20.0-44.0); MEAN CORPUSCULAR HEMOGLOBIN 28 PG (26.0-33.0); MEAN CORPUSCULAR HGB CONC 33 g/dl (31.0-36.0); MEAN CORPUSCULAR VOLUME 86 fL (82-100); MONOCYTES # (AUTO) 0.7 K/uL (0.1-1.30); NEUTROPHILS # (AUTO) 5.1 K/uL (1.8-8.9); NEUTROPHILS % (AUTO) 70.3 % (43.0-81.0); PLATELET COUNT (AUTO) 222 K/uL (150-450); RED BLOOD CELL COUNT(AUTO) 4.83 MIL/uL (4.0-5.2); RED CELL DISTRIBUTION WIDTH 14.9 % (11.5-15.0); WHITE BLOOD COUNT (AUTO) 7.2 K/uL (4.3-11.0)
[2025-04-18 20:13] LABS: CALCIUM, SERUM 9.4 mg/dL (8.5-10.1); CARBON DIOXIDE 29 mmol/L (21-32); CHLORIDE 104 mmol/L (98-107); GLUCOSE 126 mg/dL (74-106); POTASSIUM 4.2 mmol/L (3.5-5.1); SODIUM SERUM 139 mmol/L (136-145); UREA NITROGEN, BLOOD 20 mg/dL (7-18)
[2025-04-18] MEDS: IPRATROPIUM NEB FS 0.5 MG/2.5 ML AMPUL.NEB NEB ONE (20:13)
[2025-04-18] MEDS: ALBUTEROL FS 2.5 MG/3 ML VIAL.NEB NEB ONE (20:13)
[2025-04-18] MEDS: Magnesium 1GM/D5W 100ML PREMIX 200 ML IV ONE (20:23)
[2025-04-18] MEDS: methylPREDNISolone SOD SUCC 125 MG/2ML VIAL IV ONE (20:24)
[2025-04-18 20:36] VITALS: O2SAT 98
[2025-04-18 20:47] VITALS: O2SAT 98
[2025-04-18] MEDS ORDERED: MAGNESIUM HYDROXIDE 30 ML UDC PO PRN (21:30)
[2025-04-18] MEDS ORDERED: MAG HYDROX/AL HYDROX/SIMETH 30 ML UDC PO PRN (21:30)
[2025-04-18] MEDS ORDERED: ONDANSETRON HCL/PF 4 MG/2 ML VIAL IVP PRN (21:30)
[2025-04-19] VITALS (10 sets, daily range): BP systolic 138–160; BP diastolic 69–98; TEMP 97.7–98.7; O2SAT 94–97
[2025-04-19] MEDS: ENOXAPARIN SODIUM 40 MG/0.4 ML DISP.SYRIN SQ SCH (00:11)
[2025-04-19] MEDS: methylPREDNISolone SOD SUCC 125 MG/2ML VIAL IV SCH (04:30)
[2025-04-19 06:47] LABS: BASOPHILS % (AUTO) 0.2 % (0.0-2.0); HEMATOCRIT 40 % (33-45); HEMOGLOBIN 13.3 g/dL (11.5-14.8); LYMPHOCYTES # (AUTO) 0.4 K/uL (0.8-4.8); LYMPHOCYTES % (AUTO) 9.4 % (20.0-44.0); MEAN CORPUSCULAR HEMOGLOBIN 28 PG (26.0-33.0); MEAN CORPUSCULAR HGB CONC 33 g/dl (31.0-36.0); MEAN CORPUSCULAR VOLUME 86 fL (82-100); MONOCYTES % (AUTO) 0.7 % (2.0-12.0); NEUTROPHILS % (AUTO) 89.7 % (43.0-81.0); PLATELET COUNT (AUTO) 199 K/uL (150-450); RED BLOOD CELL COUNT(AUTO) 4.72 MIL/uL (4.0-5.2); RED CELL DISTRIBUTION WIDTH 14.6 % (11.5-15.0); WHITE BLOOD COUNT (AUTO) 4.5 K/uL (4.3-11.0)
[2025-04-19 07:05] LABS: CALCIUM, SERUM 9.5 mg/dL (8.5-10.1); CARBON DIOXIDE 27 mmol/L (21-32); CHLORIDE 103 mmol/L (98-107); CREATININE 0.9 mg/dL (0.6-1.3); GLUCOSE 222 mg/dL (74-106); MAGNESIUM 2.6 mg/dL (1.8-2.4); PHOSPHORUS 3.4 mg/dL (2.5-4.9); POTASSIUM 4.4 mmol/L (3.5-5.1); SODIUM SERUM 141 mmol/L (136-145); UREA NITROGEN, BLOOD 22 mg/dL (7-18)
[2025-04-19] MEDS ORDERED: ALBU8.5H8 IH (08:53)
[2025-04-19] MEDS: PANTOPRAZOLE 40 MG TABLET.DR PO SCH (10:35)
[2025-04-19] MEDS: ALBUTEROL FS 2.5 MG/3 ML VIAL.NEB NEB PRN (14:00)
[2025-04-19] MEDS: IPRATROPIUM NEB FS 0.5 MG/2.5 ML AMPUL.NEB NEB PRN (14:00)
[2025-04-19] MEDS: ALBUTEROL FS 2.5 MG/3 ML VIAL.NEB NEB SCH (14:21)
[2025-04-19] MEDS: IPRATROPIUM NEB FS 0.5 MG/2.5 ML AMPUL.NEB NEB SCH (14:21)
[2025-04-19] MEDS ORDERED: LEVOFLOXACIN (250MG) 250 MG TABLET PO SCH (14:30)
[2025-04-19] MEDS: LEVOFLOXACIN (250MG) 250 MG TABLET PO ONE (16:37)
[2025-04-19] MEDS: APIXABAN 5 MG TABLET PO SCH (16:38)
[2025-04-19] MEDS: ACETAMINOPHEN 325 MG TABLET PO PRN (20:04)
[2025-04-19] MEDS ORDERED: METH4TAB17 PO (22:13)
[2025-04-19] MEDS ORDERED: FURO-145 PO (22:13)
[2025-04-19] MEDS ORDERED: APIX5TAB PO (22:15)
[2025-04-20] VITALS (12 sets, daily range): BP systolic 103–152; BP diastolic 68–90; TEMP 97.5–98.4; O2SAT 78–100
[2025-04-20] MEDS: FUROSEMIDE 40 MG/4 ML VIAL IV ONE (13:54)
[2025-04-20] MEDS: ONDANSETRON HCL/PF 4 MG/2 ML VIAL IV PRN (14:45)
[2025-04-20] MEDS: LEVOFLOXACIN (250MG) 250 MG TABLET PO SCH (15:30)
[2025-04-20] MEDS: FUROSEMIDE 20 MG/2 ML VIAL IV SCH (17:14)
[2025-04-21] VITALS (10 sets, daily range): BP systolic 119–137; BP diastolic 72–91; TEMP 97.3–98.1; O2SAT 94–100
[2025-04-21 07:03] LABS: HEMATOCRIT 38 % (33-45); HEMOGLOBIN 12.1 g/dL (11.5-14.8); LYMPHOCYTES # (AUTO) 0.6 K/uL (0.8-4.8); MEAN CORPUSCULAR HEMOGLOBIN 28 PG (26.0-33.0); MEAN CORPUSCULAR HGB CONC 32 g/dl (31.0-36.0); MEAN CORPUSCULAR VOLUME 87 fL (82-100); MONOCYTES # (AUTO) 0.4 K/uL (0.1-1.30); MONOCYTES % (AUTO) 3.5 % (2.0-12.0); NEUTROPHILS # (AUTO) 10.4 K/uL (1.8-8.9); NEUTROPHILS % (AUTO) 91.5 % (43.0-81.0); PLATELET COUNT (AUTO) 196 K/uL (150-450); RED BLOOD CELL COUNT(AUTO) 4.36 MIL/uL (4.0-5.2); RED CELL DISTRIBUTION WIDTH 14.8 % (11.5-15.0); WHITE BLOOD COUNT (AUTO) 11.3 K/uL (4.3-11.0)
[2025-04-21 07:15] LABS: MAGNESIUM 2.5 mg/dL (1.8-2.4); PHOSPHORUS 3.9 mg/dL (2.5-4.9); POTASSIUM 4.4 mmol/L (3.5-5.1)
[2025-04-21] MEDS ORDERED: LEVO250T59 PO (11:16)
== END 2025-04-21 16:00 | disposition home health service (06) | DRG 190 ==
LOC: ER 19:56 → MEDSG1 22:23 → TELE1 23:29
PROVIDERS: ADMIT Nurse Practitioner Family; ATTEND Nurse Practitioner Acute Care
DX: J44.1 Chronic obstructive pulmonary disease with (acute) exacerbation (principal); I50.21 Acute systolic (congestive) heart failure; J96.01 Acute respiratory failure with hypoxia; I82.512 Chronic embolism and thrombosis of left femoral vein; I11.0 Hypertensive heart disease with heart failure; E78.5 Hyperlipidemia, unspecified; F41.9 Anxiety disorder, unspecified; I48.0 Paroxysmal atrial fibrillation; Z20.822 Contact with and (suspected) exposure to COVID-19; I25.10 Atherosclerotic heart disease of native coronary artery without angina pectoris; Z95.5 Presence of coronary angioplasty implant and graft; Z79.01 Long term (current) use of anticoagulants
CPT/HCPCS: 36415; 71045-TC; 80048-TC; 83735-TC; 83880; 84100-TC; 84484-TC; 85025-TC; 93307-TC; 93970-TC; 94799-TC; 97116-TC; 97530-TC; A4223; G0378; J1650; J1938; J2405; J2919; J3475; J7050